=== PATIENT | female | born 1945 | race Caucasian/White ===

== ENCOUNTER → 2017-05-09 | Outpatient (CLI) | payer OTHER ==
[2017-05-09 08:19] LABS: BASOPHILS # (AUTO) 0.1 X10^3/uL (0.0-0.1); BASOPHILS % (AUTO) 1.1 % (0.2-1.0); EOSINOPHILS # (AUTO) 0.2 x10^3/uL (0.0-0.2); EOSINOPHILS % (AUTO) 2.1 % (0.9-2.9); HEMATOCRIT 34.5 % (36.0-47.0); HEMOGLOBIN 11.6 g/dL (12.0-16.0); LYMPHOCYTES % (AUTO) 20.1 % (21.0-51.0); MEAN CORPUSCULAR HEMOGLOBIN 28.2 pg (27.0-34.0); MEAN CORPUSCULAR HGB CONC 33.5 g/dL (33.0-35.0); MEAN CORPUSCULAR VOLUME 84.3 fL (80.0-100.0); MEAN PLATELET VOLUME 8.3 fL (7.4-11.0); MONOCYTES # (AUTO) 0.9 x10^3/uL (0.3-0.8); MONOCYTES % (AUTO) 9.7 % (0.0-13.0); NEUTROPHILS # (AUTO) 6.5 x10^3/uL (2.2-4.8); PLATELET COUNT 306 X10^3/uL (150.0-450.0); RED CELL DISTRIBUTION WIDTH 15.6 % (11.6-16.5); WHITE BLOOD COUNT 9.7 X10^3/uL (3.6-10.0)
[2017-05-09 08:42] LABS: CALCIUM 10.1 mg/dL (8.5-10.1); CARBON DIOXIDE 29.7 mmol/L (21-32); COR CA(FOR HYPOALB) 10.9 mg/dL (8.5-10.1); CREATININE 1.25 mg/dL (0.55-1.02); TOTAL PROTEIN 6.8 g/dL (6.4-8.2)
== END ==
LOC: LAB 07:52
PROVIDERS: ATTEND Internal Medicine Medical Oncology
DX: C50.812 Malignant neoplasm of overlapping sites of left female breast (principal)
CPT/HCPCS: 36415; 80053; 85025

== ENCOUNTER 2018-04-26 08:17 | Observation (INO) ==
[2018-04-26 08:27] VITALS: BMI 26.7
--- NOTE | 2018-04-26 08:46 | DR.NAUSEAF ---
HPI Time Seen Time Seen by Provider: 04/26/18 08:43 Primary Care Physician Primary Care Physician: JESSICA Complaints Chief Complaint:: STARTED N/V YESTERDAY AND LABORED BREATHING FOR A COUPLE OF DAYS. BEEN REALLY WEAK. SPO2 WAS 91-92. HAD CHEMO TX YESTERDAY. PATIENT HAS BEEN HAVING MORE AMS THAN NORMAL. Reviewed Nurses Notes Reviewed: Yes Source History Provided: Patient Mode of Arrival Mode of Arrival: Ambulatory Timing Onset of Chief Complaint: 04/23/18 PMH PMH Past Medical History: Yes Past Medical History: Diabetes, Hypertension and Hypothyroidism Past Medical History Comment: CANCER Past Surgical History: Yes Surgical History: Cholecystectomy, Hysterectomy, Mastectomy and Tonsillectomy Family History History of Family Medical Conditions: Yes Family Medical History: Cancer Social History Does patient currently use any type of tobacco product: No Have you used tobacco products in the last 12 months: No Type of Tobacco Use: None Does any household member use tobacco: No Do you use any recreational Drugs:: No Lives With: Alone and Family Lives Where: Home infectious screening In the last 2 months have you had wt loss of >10#?: NO Have you had fever, night sweats or hemotysis?: No Have you traveled outside the country in the last 6 months?: No PE Vital Signs Vitals: Temperature 97.5 F Pulse Rate [Right Brachial] 81 Pulse Rate 88 Respiratory Rate 18 Blood Pressure [Right Arm] 145/66 Blood Pressure 121/60 O2 Sat by Pulse Oximetry 100 MDM Additional Information Obtained Additional Information Obtained From: Old Records, Family and PCP Differential Diagnosis Differential Diagnosis: Considerations may Include:: Bowel Obstruction, Cholecystitis, Gastritis, Gastroenteritis, Pancreatitis, PUD, Urinary Tract Infection and Urolithiasis Differential Diagnosis Comment: AMS, METASTATIC BREAST CANCER. COURSE Treatment Treatment: SEE ORDERS. ROR Labs Reviewed Result Diagrams: 04/26/18 09:28 04/26/18 09:28 Laboratory: WBC 9.2 X10^3/uL (3.6-10.0) 04/26/18 09:28 RBC 3.64 X10^6/uL (3.5-5.4) 04/26/18 09:28 Hgb 11.8 g/dL (12.0-16.0) L 04/26/18 09:28 Hct 35.4 % (36.0-47.0) L 04/26/18 09:28 MCV 97.0 fL (80.0-100.0) 04/26/18: MCH 32.4 pg (27.0-34.0) 04/26/18 MCHC 33.4 g/dL (33.0-35.0) 04/26/18 RDW 16.9 % (11.6-16.5) H 04/26/18 Plt Count 294 X10^3/uL (150.0-450.0) 04/26/18 MPV 9.2 fL (7.4-11.0) 04/26/18 Neut % (Auto) 76.3 % (42.0-75.0) H 04/26/18 Lymph % (Auto) 16.1 % (21.0-51.0) L 04/26/18 [place] % (Auto) 6.3 % (0.0-13.0) 04/26/18 Eos % (Auto) 0.5 % (0.9-2.9) L 04/26/18 Baso % (Auto) 0.8 % (0.2-1.0) 04/26/18 Neut # (Auto) 7.0 x10^3/uL (2.2-4.8) H 04/26/18 Lymph # (Auto) 1.5 X10^3/uL (1.3-2.9) 04/26/18 [place] # (Auto) 0.6 x10^3/uL (0.3-0.8) 04/26/18 Eos # (Auto) 0.0 x10^3/uL (0.0-0.2) 04/26/18 Baso # (Auto) 0.1 X10^3/uL (0.0-0.1) 04/26/18 Absolute Nucleated RBC 0.0 /100WBC 04/26/18 Sodium 142 mmol/L (136-145) 04/26/18 Corrected Sodium 144 mmol/L (136-145) 04/26/18 Potassium 3.6 mmol/L (3.5-5.1) 04/26/18 09:28 Chloride 103 mmol/L (98-107) 04/26/18 09:28 Carbon Dioxide 30.1 mmol/L (21-32) 04/26/18 09:28 BUN 33 mg/dL (7-18) H 04/26/18 09:28 Creatinine 1.70 mg/dL (0.55-1.02) H 04/26/18 09:28 Est GFR (MDRD) Af Amer 38 (>60) L 04/26/18:28 Est GFR (MDRD) Non-Af 31 (>60) L 04/26/18:28 Glucose 171 mg/dL (65-99) H 04/26/18 09:28 Lactic Acid 1.0 mmol/L (0.4-2.0) 04/26/18 09:28 Calcium 9.6 mg/dL (8.5-10.1) 04/26/18: Corrected Calcium 10.3 mg/dL (8.5-10.1) H 04/26/18 09:28 Total Bilirubin 0.40 mg/dL (0.2-1.0) 04/26/18 09:28 AST 26 Units/L (15-37) 04/26/18 09:28 ALT 38 Units/L (12-78) 04/26/18 09:28 Alkaline Phosphatase 92 Units/L (46-116) 04/26/18 09:28 Creatine Kinase 30 Units/L (26-192) 04/26/18 09:28 CK-MB (CK-2) < 1.0 ng/mL (0-4.0) 04/26/18 09: CK/CKMB % Calc 3.3 % (<4) 04/26/18 09:28 Troponin I 0.02 ng/mL (0-1.5) 04/26/18 09:28 C-Reactive Protein 43.90 mg/L (0-3.0) H 04/26/18 09:28 Total Protein 6.4 g/dL (6.4-8.2) 04/26/18 09:28 Albumin 3.1 g/dL (3.4-5.0) L 04/26/18 09:28 Globulin 3.3 g/dL (2.5-4.5) 04/26/18 09:28 Albumin/Globulin Ratio 0.9 Ratio (1.1-2.1) L 04/26/18 09:28 Amylase 40 Units/L (25-115) 04/26/18 09:28 Lipase 90 Units/L (73-393) 04/26/18 09:28
[2018-04-26 09:38] LABS: BASOPHILS # (AUTO) 0.1 X10^3/uL (0.0-0.1); BASOPHILS % (AUTO) 0.8 % (0.2-1.0); EOSINOPHILS % (AUTO) 0.5 % (0.9-2.9); HEMATOCRIT 35.4 % (36.0-47.0); HEMOGLOBIN 11.8 g/dL (12.0-16.0); LYMPHOCYTES # (AUTO) 1.5 X10^3/uL (1.3-2.9); LYMPHOCYTES % (AUTO) 16.1 % (21.0-51.0); MEAN CORPUSCULAR HEMOGLOBIN 32.4 pg (27.0-34.0); MEAN CORPUSCULAR HGB CONC 33.4 g/dL (33.0-35.0); MEAN PLATELET VOLUME 9.2 fL (7.4-11.0); MONOCYTES # (AUTO) 0.6 x10^3/uL (0.3-0.8); MONOCYTES % (AUTO) 6.3 % (0.0-13.0); NEUTROPHILS % (AUTO) 76.3 % (42.0-75.0); PLATELET COUNT 294 X10^3/uL (150.0-450.0); RED BLOOD COUNT 3.64 X10^6/uL (3.5-5.4); RED CELL DISTRIBUTION WIDTH 16.9 % (11.6-16.5); WHITE BLOOD COUNT 9.2 X10^3/uL (3.6-10.0)
[2018-04-26 09:55] LABS: BLOOD UREA NITROGEN 33 mg/dL (7-18); CALCIUM 9.6 mg/dL (8.5-10.1); CARBON DIOXIDE 30.1 mmol/L (21-32); CHLORIDE 103 mmol/L (98-107); COR NA(FOR HYPERGLY) 144 mmol/L (136-145); SODIUM 142 mmol/L (136-145); TROPONIN I 0.02 ng/mL (0-1.5); eGFR NON BLACK RACES 31 (>60)
[2018-04-26 10:00] LABS: ALANINE AMINOTRANSFERASE 38 Units/L (12-78); ALBUMIN 3.1 g/dL (3.4-5.0); ALKALINE PHOSPHATASE 92 Units/L (46-116); AMYLASE 40 Units/L (25-115); ASPARTATE AMINO TRANSFERASE 26 Units/L (15-37); CKMB % 3.3 % (<4); COR CA(FOR HYPOALB) 10.3 mg/dL (8.5-10.1); CREATINE KINASE 30 Units/L (26-192); CREATINE KINASE MB < 1.0 ng/mL (0-4.0); LIPASE 90 Units/L (73-393); TOTAL PROTEIN 6.4 g/dL (6.4-8.2)
--- NOTE | 2018-04-26 10:26 | CT ---
CT HEAD WITHOUT CONTRAST CLINICAL HISTORY: 72-year-old female with altered mental status and history of breast cancer. COMPARISON: CT head 11/19/2014. TECHNIQUE: Multiple, non-contrasted axial CT images were obtained from the skull base to the cranial vertex. Coronal and sagittal reformats were performed. FINDINGS: There are no abnormal intra- or extra-axial fluid collections, midline shift, or mass effect. Valles-white differentiation is normal. Global cortical involutional changes are present that are advanced for the patient's stated age. The ventricular system is enlarged but commensurate with the degree of sulcal prominence. Periventricular and supraventricular white matter hypodensity is present that is nonspecific in appearance, but most likely to represent microvascular ischemic changes. Atherosclerotic vascular calcification is present within the carotid siphons and distal vertebral arteries. Arrested pneumatization frontal sinuses. The remaining imaged paranasal sinuses, mastoid air cells, and tympanic spaces are clear. IMPRESSION: 1. No definite evidence of an acute intracranial process. If clinical concern persists for acute stroke and it would alter patient management, consider MRI/MRA brain. 2. Moderate microvascular white matter ischemic changes, with associated volume loss. Reported By:
--- NOTE | 2018-04-26 10:44 | RAD ---
HISTORY: Abdomen pain, nausea and vomiting for 2 days. Prior history of diabetes, hypertension and breast cancer. Study: Abdomen series with frontal chest Comparison: 07/21/2017. Findings: Right-sided LifePort is again seen with the tip in the mid SVC. Trachea is midline. Heart size is normal. There is hyperinflation of the lungs with bilateral pleural effusions, pleural effusion on the right side is slightly larger with foci of atelectasis or scarring in the right lung base. No pneumothorax is seen. There is a healed fracture of the left proximal humerus. Moderate stool is present throughout the colon. No bowel obstruction or perforation is seen. There are calcific densities overlying both kidneys, suspicious for kidney stones. A biliary stent is present. There is again evidence of kyphoplasty the T11 level. Surgical clips are present throughout the abdomen. There are large amorphous calcifications present involving both gluteal regions from prior I am injections. No acute osseous abnormalities are seen. IMPRESSION: Small bilateral pleural effusions, slightly larger on the right side with right basilar linear foci of atelectasis or scarring. No pneumothorax is seen. Abundant stool present throughout the colon. No bowel obstruction or perforation is seen. There is no evidence of free intraperitoneal air or fluid. Multiple postsurgical changes are present with a biliary stent present. There are bilateral renal calculi present. The largest kidney stone is seen on the left side measuring about 1.8 cm in length. Reported By:
[2018-04-26] MEDS ORDERED: ZOFRAN INJ 4 MG VIAL IVP ONE (11:04)
[2018-04-26] MEDS ORDERED: ZOFRAN INJ 4 MG VIAL ONE (11:06)
[2018-04-26] MEDS ORDERED: KLONOPIN TAB 1 MG PO PRN (12:35)
[2018-04-26] MEDS ORDERED: NEURONTIN CAP 100 MG PO PRN (12:35)
[2018-04-26] MEDS ORDERED: PROVENTIL NEB TX 0.083% 2.5MG/ 3ML NEB PRN (12:36)
[2018-04-26] MEDS: REGLAN TAB 10 MG PO SCH ×3 (14:04→21:33)
[2018-04-26] MEDS: MICRO K EXTEN CAP 10 MEQ PO SCH ×2 (14:04→21:33)
[2018-04-26] MEDS: MIRAPEX TAB 1 MG PO SCH ×2 (14:04→21:33)
[2018-04-26] MEDS: NS 1000 ML 1,000 ML IV SCH (14:04)
[2018-04-26 15:10] LABS: BILIRUBIN,URINE NEGATIVE (NEGATIVE); BLOOD/HEMOGLOBIN,URINE 1+ (NEGATIVE); GLUCOSE, URINE NEGATIVE (NEGATIVE); KETONES,URINE NEGATIVE (NEGATIVE); LEUKOCYTE ESTERASE ,URINE 2+ (NEGATIVE); NITRITES,URINE NEGATIVE (NEGATIVE); PROTEIN,URINE 1+ (NEGATIVE); UROBILINOGEN,URINE NORMAL (NORMAL)
[2018-04-26 15:21] LABS: APPEARANCE,URINE HAZY (CLEAR); BACTERIA,URINE TRACE /HPF (NEGATIVE); COLOR,URINE DARK YELLOW (YELLOW); RENAL EPITHELIAL CELLS,URINE FEW /HPF (NEGATIVE); SQUAMOUS EPITHELIAL CELL,UR MODERATE /HPF (NEGATIVE)
[2018-04-26] MEDS ORDERED: PREVNAR 13 IM ONE (15:47)
[2018-04-26 16:17] LABS: CKMB % 3.1 % (<4); CREATINE KINASE 32 Units/L (26-192); CREATINE KINASE MB < 1.0 ng/mL (0-4.0); TROPONIN I 0.02 ng/mL (0-1.5)
[2018-04-26] MEDS: PEPCID 20 MG IV PREMIX* 20 MG/50 ML BAG IV SCH (21:33)
[2018-04-26] MEDS: EFFEXOR TAB 75 MG (BID DOSING) PO SCH (21:34)
[2018-04-26 22:25] LABS: CKMB % 1.8 % (<4); TROPONIN I 0.02 ng/mL (0-1.5)
[2018-04-27] MEDS: NS 1000 ML 1,000 ML IV SCH ×2 (04:10→19:00)
[2018-04-27] MEDS: MICRO K EXTEN CAP 10 MEQ PO SCH ×3 (05:41→21:06)
[2018-04-27] MEDS: MIRAPEX TAB 1 MG PO SCH ×3 (05:42→21:06)
[2018-04-27 06:32] LABS: BASOPHILS # (AUTO) 0.1 X10^3/uL (0.0-0.1); BASOPHILS % (AUTO) 1.1 % (0.2-1.0); EOSINOPHILS % (AUTO) 0.3 % (0.9-2.9); HEMOGLOBIN 11.3 g/dL (12.0-16.0); LYMPHOCYTES # (AUTO) 1.7 X10^3/uL (1.3-2.9); LYMPHOCYTES % (AUTO) 22.1 % (21.0-51.0); MEAN CORPUSCULAR HEMOGLOBIN 32.5 pg (27.0-34.0); MEAN CORPUSCULAR HGB CONC 33.1 g/dL (33.0-35.0); MEAN CORPUSCULAR VOLUME 97.9 fL (80.0-100.0); MEAN PLATELET VOLUME 9.7 fL (7.4-11.0); MONOCYTES # (AUTO) 0.6 x10^3/uL (0.3-0.8); MONOCYTES % (AUTO) 8.4 % (0.0-13.0); NEUTROPHILS # (AUTO) 5.2 x10^3/uL (2.2-4.8); NEUTROPHILS % (AUTO) 68.1 % (42.0-75.0); PLATELET COUNT 268 X10^3/uL (150.0-450.0); RED BLOOD COUNT 3.47 X10^6/uL (3.5-5.4); RED CELL DISTRIBUTION WIDTH 16.8 % (11.6-16.5); WHITE BLOOD COUNT 7.7 X10^3/uL (3.6-10.0)
[2018-04-27 06:48] LABS: ALBUMIN 2.8 g/dL (3.4-5.0); CALCIUM 8.5 mg/dL (8.5-10.1); CARBON DIOXIDE 24.3 mmol/L (21-32); COR CA(FOR HYPOALB) 9.5 mg/dL (8.5-10.1); CREATININE 1.61 mg/dL (0.55-1.02); MAGNESIUM 1.6 mg/dL (1.7-2.9); TOTAL PROTEIN 5.9 g/dL (6.4-8.2)
[2018-04-27] MEDS: SYNTHROID 50 mcg TAB PO SCH (09:27)
[2018-04-27] MEDS: EFFEXOR TAB 75 MG (BID DOSING) PO SCH ×2 (09:28→21:06)
[2018-04-27] MEDS: MAG-OX TAB PO SCH (09:28)
[2018-04-27] MEDS: MAXZIDE 37.5/25 MG PO SCH (09:28)
[2018-04-27] MEDS: REGLAN TAB 10 MG PO SCH ×4 (09:28→21:07)
[2018-04-27] MEDS: PEPCID 20 MG IV PREMIX* 20 MG/50 ML BAG IV SCH ×2 (09:29→21:06)
[2018-04-27] MEDS: INDERAL TAB 10 MG PO SCH (09:34)
[2018-04-27] MEDS ORDERED: POTASSIUM CHL 40 MEQ/NS 0.45% 500 ML IV PRN (09:35)
[2018-04-27] MEDS ORDERED: K-DUR TAB 20 MEQ PO PRN (09:35)
[2018-04-27] MEDS ORDERED: POTASSIUM CHLORIDE LIQ 20 MEQ UDC PO PRN (09:35)
[2018-04-27] MEDS ORDERED: KLOR-CON PO PRN (09:35)
[2018-04-27] MEDS ORDERED: K-RIDER 10 MEQ/NS 100 ML 10 MEQ/100 ML BAG IV PRN (09:35)
[2018-04-27] MEDS ORDERED: MICRO K EXTEN CAP 10 MEQ PO PRN (09:35)
[2018-04-27] MEDS ORDERED: POTASSIUM CHL 60 MEQ/NS 0.45% 500 ML IV PRN (09:35)
[2018-04-27] MEDS: PREDNISONE TAB 5 MG PO SCH (09:44)
[2018-04-27] MEDS ORDERED: TYLENOL 325 MG TAB PO ONE (09:55)
[2018-04-27] MEDS ORDERED: TYLENOL 325 MG TAB PO PRN (09:59)
--- NOTE | 2018-04-27 17:41 | RAD ---
PA and lateral chest Indication: Follow-up pleural effusion Comparison: 04/26/2018 Findings: Pleural parenchymal scarring and moderate size right pleural effusion persist. There is likely small effusion and/or scarring within the left lung base as well. Moderate pleural parenchymal scarring within both lung apices. Chronic interstitial lung changes with pleural parenchymal scarring and subsegmental atelectasis within both lung bases. No convincing acute airspace disease or CHF. Heart size is unchanged. Stable positioning of right chest wall MediPort. No acute osseous abnormality. Impression: See above. Reported By:
[2018-04-27] MEDS ORDERED: HumaLOG SC ONE ×2 (17:54→18:01)
[2018-04-27] MEDS: HumaLOG SC PRN ×2 (18:11→21:27)
[2018-04-27] MEDS ORDERED: COMPAZINE PO PRN (19:11)
--- NOTE | 2018-04-27 19:17 | DR.H&P ---
H&P - History & Physical for Day of: H&P Date: 04/26/18 - Chief Complaint Chief Complaint: STARTED N/V YESTERDAY AND LABORED BREATHING FOR A COUPLE OF DAYS. BEEN REALLY WEAK. SPO2 WAS 91-92. HAD CHEMO TX YESTERDAY. PATIENT HAS BEEN HAVING MORE AMS THAN NORMAL PER FAMILY REPORT - History of Present Illness History of Present Illness: 72 WF ER ADMISSION AFTER PRESENTING WITH CO N/V, WEAKNESS AND INCREASED CONFUSION. PT HAD HX OF METASTATIC BREAST CANCER AND HAD CXR WITH MODERATE RIGHT PLEURAL EFFUSION, FAMILY REPORTS DR MENDEZ HAS "DRAINED IT LIKE 2-3 TIMES" RECENTLY. PT HAS ADRENAL INSUFFICENCY AND DM DUE TO CORTISONE THERAPY. PT FAMILY REPORTS SHE JUST HAD CHEMO, DENIES KNOWN FEVER. - Past Medical History Past Medical History: Hypertension, Diabetes, Hypothyroidism Additional Medical History: BREAST CANCER. ADRENAL GLAND FAILURE - Past Surgical History Surgical History: Cholecystectomy, Hysterectomy, Mastectomy, Tonsillectomy - Family History Family Medical History: Cancer - Social History Does patient currently use any type of tobacco product: No Have you used tobacco products in the last 12 months: No Type of Tobacco Use: None Does any household member use tobacco: No Alcohol Use: None Drug Use: None - Medications Home Medications: codeine Allergy (Verified 07/17/17 15:43) levofloxacin [From Levaquin] Allergy (Verified 07/20/17 17:42) Sulfa (Sulfonamide Antibiotics) [SULFA] Allergy (Verified 07/17/17 15:43) CONTINUE taking the following medications cetirizine 2 tab PO HS 04/26/18 [History] insulin glargine U-300 conc [[employer] SoloStar U-300 Insulin] 16 units SUBCUT DAILY 04/26/18 [History] ondansetron 0.5 - 1 tab TRANSLINGUAL PRN PRN 04/26/18 [History] potassium chloride 10 meq PO TID 04/26/18 [History] pramipexole 1 mg PO TID 04/26/18 [History] prochlorperazine maleate 10 mg PO Q8H PRN 04/26/18 [History] propranolol 60 mg PO DAILY 04/26/18 [History] ropinirole 1 mg PO TID 04/26/18 [History] - Review of Systems Constitutional: Weakness Eyes: No Symptoms Reported ENT: No Symptoms Reported Respiratory: Shortness of Breath Cardiovascular: Edema Gastrointestinal: Nausea, Vomiting Genitourinary: No Symptoms Reported Musculoskeletal: No Symptoms Reported Skin: No Symptoms Reported Neurological: Weakness, Confusion - Physical Exam Vital Signs: Temperature 98.1 F Pulse Rate [Right Brachial] 71 Pulse Rate 88 Respiratory Rate 18 Blood Pressure [Right Arm] 145/65 Blood Pressure 121/60 O2 Sat by Pulse Oximetry 98 Oriented: Person Eyes: Normal Ear: Normal Nose: Normal Throat: Normal Respiratory: RML Diminished, RLL Diminished, LML Diminished, LLL Diminished Cardiovascular: Edema. negative: Tachycardia : Normal Auscultation: Bowel Sounds: Normal Palpation: Normal Tenderness: Normal Skin: Decreased Turgur Musculoskeletal: Normal Mood Description: Calm Speech Pattern: Clear, Appropriate - Assessment/Plan (1) Hypokalemia Status: Acute Plan: POTASSIUM REPLACEMENT. BP AND BLOOD SUGAR CONTROL. VERIFY HOME MEDICATION. N/V CONTROL, REPEAT AM CXR, SUPPLEMENTAL O2. CONSULT DR MENDEZ (2) Bilateral pleural effusion Status: Acute (3) N&V (nausea and vomiting) Status: Acute (4) Breast cancer Status: Acute (5) Adrenal failure Status: Acute (6) Generalized weakness Status: Acute - Allergies Allergies/Adverse Reactions: Allergies Allergy/AdvReac Type Severity Reaction Status Date / Time codeine Allergy Verified 07/17/17 15:43 levofloxacin [From Levaquin] Allergy Verified 07/20/17 17:42 Sulfa (Sulfonamide Allergy Verified 07/17/17 15:43 Antibiotics) [SULFA]
[2018-04-27] MEDS ORDERED: SNACK - Diabetic Appropriate PO SCH (20:00)
[2018-04-27] MEDS ORDERED: ZyrTEC TAB 10 MG PO SCH (21:00)
[2018-04-27] MEDS: REQUIP PO SCH (21:06)
[2018-04-27] MEDS: ROCEPHIN VIAL 1 GRAM IVP SCH (21:36)
[2018-04-28] MEDS: NS 1000 ML 1,000 ML IV SCH (03:49)
[2018-04-28 05:18] LABS: BASOPHILS % (AUTO) 0.8 % (0.2-1.0); EOSINOPHILS % (AUTO) 0.7 % (0.9-2.9); HEMATOCRIT 35.1 % (36.0-47.0); HEMOGLOBIN 11.5 g/dL (12.0-16.0); LYMPHOCYTES # (AUTO) 1.1 X10^3/uL (1.3-2.9); LYMPHOCYTES % (AUTO) 17.5 % (21.0-51.0); MEAN CORPUSCULAR HEMOGLOBIN 32.1 pg (27.0-34.0); MEAN CORPUSCULAR HGB CONC 32.8 g/dL (33.0-35.0); MEAN CORPUSCULAR VOLUME 97.9 fL (80.0-100.0); MEAN PLATELET VOLUME 9.8 fL (7.4-11.0); MONOCYTES # (AUTO) 0.4 x10^3/uL (0.3-0.8); MONOCYTES % (AUTO) 6.5 % (0.0-13.0); NEUTROPHILS # (AUTO) 4.5 x10^3/uL (2.2-4.8); NEUTROPHILS % (AUTO) 74.5 % (42.0-75.0); PLATELET COUNT 286 X10^3/uL (150.0-450.0); RED BLOOD COUNT 3.59 X10^6/uL (3.5-5.4); RED CELL DISTRIBUTION WIDTH 16.2 % (11.6-16.5); WHITE BLOOD COUNT 6.1 X10^3/uL (3.6-10.0)
[2018-04-28 05:27] LABS: ALBUMIN 2.7 g/dL (3.4-5.0); CALCIUM 8.2 mg/dL (8.5-10.1); CARBON DIOXIDE 25.6 mmol/L (21-32); COR CA(FOR HYPOALB) 9.2 mg/dL (8.5-10.1); CREATININE 1.39 mg/dL (0.55-1.02); MAGNESIUM 1.9 mg/dL (1.7-2.9)
[2018-04-28] MEDS: MIRAPEX TAB 1 MG PO SCH (05:39)
[2018-04-28] MEDS: REQUIP PO SCH (05:39)
[2018-04-28] MEDS: MICRO K EXTEN CAP 10 MEQ PO SCH (05:39)
[2018-04-28] MEDS: HumaLOG SC PRN ×2 (05:53→11:29)
[2018-04-28] MEDS: ROCEPHIN VIAL 1 GRAM IVP SCH (08:20)
[2018-04-28] MEDS: PEPCID 20 MG IV PREMIX* 20 MG/50 ML BAG IV SCH (08:20)
[2018-04-28] MEDS: MAXZIDE 37.5/25 MG PO SCH (08:21)
[2018-04-28] MEDS: EFFEXOR TAB 75 MG (BID DOSING) PO SCH (08:22)
[2018-04-28] MEDS: REGLAN TAB 10 MG PO SCH ×2 (08:22→13:58)
[2018-04-28] MEDS: SYNTHROID 50 mcg TAB PO SCH (08:22)
[2018-04-28] MEDS: MAG-OX TAB PO SCH (08:22)
[2018-04-28] MEDS: INDERAL TAB 10 MG PO SCH (08:22)
[2018-04-28] MEDS: PREDNISONE TAB 5 MG PO SCH (08:22)
--- NOTE | 2018-04-28 13:10 | PCM.PROG ---
Progress Note - Progress Note for Day of Date of Exam: 04/27/18 - Subjective Subjective: 72 WF ADMITTED ON 04/26 WITH WEAKNESS, N/V, UTI, CONFUSION PER FAMILY AND PLEURAL EFFUSION SEEN ON XRAY. PT HAD HX OF BREAST CANCER AND HAS HAD REOCCURRING PLEURAL EFFUSION WITH THORACETSIS PER DR MENDEZ. PT HAD UTI ON ADMISSION AND CURRENTLY ON IV ROCEPHIN WITH CULTURE PENDING. 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 PT HAD REPEAT CXR AND CONSULTED DR GORDON. - Past Medical Family Social History Past Med/Fam/Surg Hx: No changes since H&P Allergies: Allergies codeine Allergy (Verified 07/17/17 15:43) levofloxacin [From Levaquin] Allergy (Verified 07/20/17 17:42) Sulfa (Sulfonamide Antibiotics) [SULFA] Allergy (Verified 07/17/17 15:43) - Review of Systems ROS: No change since H&P - Vital Signs and I&O's Vital Signs: Temperature 98.2 F Pulse Rate [Right Brachial] 84 Pulse Rate 88 Respiratory Rate 18 Blood Pressure [Right Arm] 154/69 Blood Pressure 121/60 O2 Sat by Pulse Oximetry 97 Intake and Output: Intake & Output 04/26/18 04/27/18 04/28/18 04/29/18 11:59 11:59 11:59 11:59 Intake Total 660 / 660 1765 / 1765 Balance 660 / 660 1765 / 1765 - Physical Exam Oriented: Person Eyes: Normal Ear: Normal Nose: Normal Throat: Normal Respiratory: Diminished Cardiovascular: Edema. negative: Tachycardia : Normal Auscultation: Bowel Sounds: Normal Tenderness: Normal Skin: Decreased Turgur Musculoskeletal: Normal Mood Description: Calm Speech Pattern: Clear, Appropriate - Laboratory and Diagnostics Result Diagrams: 04/28/18 04:27 04/28/18 04:27 Labs: 04/26/18 09:22 Blood Blood Culture - Preliminary 04/26/18 09:28 Blood Blood Culture - Preliminary 04/26/18 14:50 Urine,Clean Catch Urine Culture - Final Enterococcus Faecalis Laboratory WBC 6.1 X10^3/uL (3.6-10.0) 04/28/18 04:27 RBC 3.59 X10^6/uL (3.5-5.4) 04/28/18 04:27 Hgb 11.5 g/dL (12.0-16.0) L 04/28/18 04:27 Hct 35.1 % (36.0-47.0) L 04/28/18 04:27 MCV 97.9 fL (80.0-100.0) 04/28/18 04:27 MCH 32.1 pg (27.0-34.0) 04/28/18 04:27 MCHC 32.8 g/dL (33.0-35.0) L 04/28/18 04:27 RDW 16.2 % (11.6-16.5) 04/28/18 04:27 Plt Count 286 X10^3/uL (150.0-450.0) 04/28/18 04:27 MPV 9.8 fL (7.4-11.0) 04/28/18 04:27 Neut % (Auto) 74.5 % (42.0-75.0) 04/28/18 04:27 Lymph % (Auto) 17.5 % (21.0-51.0) L 04/28/18 04:27 [place] % (Auto) 6.5 % (0.0-13.0) 04/28/18 04:27 Eos % (Auto) 0.7 % (0.9-2.9) L 04/28/18 04:27 Baso % (Auto) 0.8 % (0.2-1.0) 04/28/18 04:27 Neut # (Auto) 4.5 x10^3/uL (2.2-4.8) 04/28/18 04:27 Lymph # (Auto) 1.1 X10^3/uL (1.3-2.9) L 04/28/18 04:27 [place] # (Auto) 0.4 x10^3/uL (0.3-0.8) 04/28/18 04:27 Eos # (Auto) 0.0 x10^3/uL (0.0-0.2) 04/28/18 04:27 Baso # (Auto) 0.0 X10^3/uL (0.0-0.1) 04/28/18 04:27 Absolute Nucleated RBC 0.1 /100WBC 04/28/18 04:27 Sodium 141 mmol/L (136-145) 04/28/18 04:27 Corrected Sodium 144 mmol/L (136-145) 04/28/18 04:27 Potassium 3.8 mmol/L (3.5-5.1) 04/28/18 04:27 Chloride 108 mmol/L (98-107) H 04/28/18 04:27 Carbon Dioxide 25.6 mmol/L (21-32) 04/28/18 04:27 BUN 22 mg/dL (7-18) H 04/28/18 04:27 Creatinine 1.39 mg/dL (0.55-1.02) H 04/28/18 04:27 Est GFR (MDRD) Af Amer 48 (>60) L 04/28/18 04:27 Est GFR (MDRD) Non-Af 40 (>60) L 04/28/18 04:27 Glucose 210 mg/dL (65-99) H 04/28/18 04:27 POC Glucose (mg/dL) 263 mg/dL (65-99) H 04/28/18 11:22 Lactic Acid 1.0 mmol/L (0.4-2.0) 04/26/18 09:28 Calcium 8.2 mg/dL (8.5-10.1) L 04/28/18 04:27 Corrected Calcium 9.2 mg/dL (8.5-10.1) 04/28/18 04:27 Magnesium 1.9 mg/dL (1.7-2.9) 04/28/18 04:27 Total Bilirubin 0.30 mg/dL (0.2-1.0) 04/28/18 04:27 AST 34 Units/L (15-37) 04/28/18 04:27 ALT 40 Units/L (12-78) 04/28/18 04:27 Alkaline Phosphatase 84 Units/L (46-116) 04/28/18 04:27 Creatine Kinase 57 Units/L (26-192) 04/26/18 21:37 CK-MB (CK-2) 1.0 ng/mL (0-4.0) 04/26/18 21:37 CK/CKMB % Calc 1.8 % (<4) 04/26/18 21:37 Troponin I 0.02 ng/mL (0-1.5) 04/26/18 21:37 C-Reactive Protein 43.90 mg/L (0-3.0) H 04/26/18 09:28 Total Protein 6.0 g/dL (6.4-8.2) L 04/28/18 04:27 Albumin 2.7 g/dL (3.4-5.0) L 04/28/18 04:27 Globulin 3.3 g/dL (2.5-4.5) 04/28/18 04:27 Albumin/Globulin Ratio 0.8 Ratio (1.1-2.1) L 04/28/18 04:27 Amylase 40 Units/L (25-115) 04/26/18 09:28 Lipase 90 Units/L (73-393) 04/26/18 09:28 Specimen Type Clean catch urine 04/26/18 14:50 Urine Color Dark yellow (YELLOW) 04/26/18 14:50 Urine Appearance Hazy (CLEAR) 04/26/18 14:50 Urine pH 5.0 (5.0 - 8.0) 04/26/18 14:50 Ur Specific [place] 1.020 (1.000-1.030) 04/26/18 14:50 Urine Protein 1+ (NEGATIVE) 04/26/18 14:50 Urine Glucose (UA) Negative (NEGATIVE) 04/26/18 14:50 Urine Ketones Negative (NEGATIVE) 04/26/18 14:50 Urine Occult Blood 1+ (NEGATIVE) 04/26/18 14:50 Urine Nitrite Negative (NEGATIVE) 04/26/18 14:50 Urine Bilirubin Negative (NEGATIVE) 04/26/18 14:50 Urine Urobilinogen Normal (NORMAL) 04/26/18 14:50 Ur Leukocyte Esterase 2+ (NEGATIVE) 04/26/18 14:50 Urine RBC 3-5 /HPF (NONE SEEN) 04/26/18 14:50 Urine WBC 10-20 /HPF (NONE SEEN) 04/26/18 14:50 Ur Squamous Epith Cells Moderate /HPF (NEGATIVE) 04/26/18 14:50 Ur Renal Epithelial Cell Few /HPF (NEGATIVE) 04/26/18 14:50 Urine Bacteria Trace /HPF (NEGATIVE) 04/26/18 14:50 Ur Culture Indicated? Yes/culture set up 04/26/18 14:50 - Plan (1) Hypokalemia Status: Acute Plan: POTASSIUM REPLACEMENT. BP AND BLOOD SUGAR CONTROL. VERIFY HOME MEDICATION. N/V CONTROL, REPEAT AM CXR, SUPPLEMENTAL O2. CONSULT DR MENDEZ (2) Bilateral pleural effusion Status: Acute (3) N&V (nausea and vomiting) Status: Acute (4) Breast cancer Status: Acute (5) Adrenal failure Status: Acute (6) Generalized weakness Status: Acute (7) UTI (urinary tract infection) Status: Acute Plan: IV ROCEPHIN
--- NOTE | 2018-04-28 13:16 | PCM.DCPLAN ---
Discharge Summary - Admission Date Date of Admission: 04/26/18 - Discharge Date Discharge Date: 04/28/18 - Admission Diagnoses (1) Hypokalemia Status: Acute (2) Bilateral pleural effusion Status: Acute (3) N&V (nausea and vomiting) Status: Acute (4) Breast cancer Status: Acute (5) Adrenal failure Status: Acute (6) Generalized weakness Status: Acute (7) UTI (urinary tract infection) Status: Acute - Discharge Diagnoses Discharge Diagnosis: SAME ADMISSION, CORRECTION OF HYPOKALEMIA - Discharge Medications Discharge Medications: Home Medication List cetirizine 2 tab PO HS 04/26/18 [History] insulin glargine U-300 conc 16 units SUBCUT DAILY 04/26/18 [History] ondansetron 0.5 - 1 tab TRANSLINGUAL PRN PRN 04/26/18 [History] potassium chloride 10 meq PO TID 04/26/18 [History] pramipexole 1 mg PO TID 04/26/18 [History] prochlorperazine maleate 10 mg PO Q8H PRN 04/26/18 [History] propranolol 60 mg PO DAILY 04/26/18 [History] ropinirole 1 mg PO TID 04/26/18 [History] amoxicillin 500 mg PO BID #20 tab 04/28/18 [Rx] Prescriptions: JOSE ANTONIO Coleman - Hospital Course Vital Signs: Temperature 98.2 F Pulse Rate [Right Brachial] 84 Pulse Rate 88 Respiratory Rate 18 Blood Pressure [Right Arm] 154/69 Blood Pressure 121/60 O2 Sat by Pulse Oximetry 97 Latest Lab Results: Laboratory Last Values WBC 6.1 X10^3/uL (3.6-10.0) 04/28/18 04:27 RBC 3.59 X10^6/uL (3.5-5.4) 04/28/18 04:27 Hgb 11.5 g/dL (12.0-16.0) L 04/28/18 04:27 Hct 35.1 % (36.0-47.0) L 04/28/18 04:27 MCV 97.9 fL (80.0-100.0) 04/28/18 04:27 MCH 32.1 pg (27.0-34.0) 04/28/18 04:27 MCHC 32.8 g/dL (33.0-35.0) L 04/28/18 04:27 RDW 16.2 % (11.6-16.5) 04/28/18 04:27 Plt Count 286 X10^3/uL (150.0-450.0) 04/28/18 04:27 MPV 9.8 fL (7.4-11.0) 04/28/18 04:27 Neut % (Auto) 74.5 % (42.0-75.0) 04/28/18 04:27 Lymph % (Auto) 17.5 % (21.0-51.0) L 04/28/18 04:27 [place] % (Auto) 6.5 % (0.0-13.0) 04/28/18 04:27 Eos % (Auto) 0.7 % (0.9-2.9) L 04/28/18 04:27 Baso % (Auto) 0.8 % (0.2-1.0) 04/28/18 04:27 Neut # (Auto) 4.5 x10^3/uL (2.2-4.8) 04/28/18 04:27 Lymph # (Auto) 1.1 X10^3/uL (1.3-2.9) L 04/28/18 04:27 [place] # (Auto) 0.4 x10^3/uL (0.3-0.8) 04/28/18 04:27 Eos # (Auto) 0.0 x10^3/uL (0.0-0.2) 04/28/18 04:27 Baso # (Auto) 0.0 X10^3/uL (0.0-0.1) 04/28/18 04:27 Absolute Nucleated RBC 0.1 /100WBC 04/28/18 04:27 Sodium 141 mmol/L (136-145) 04/28/18 04:27 Corrected Sodium 144 mmol/L (136-145) 04/28/18 04:27 Potassium 3.8 mmol/L (3.5-5.1) 04/28/18 04:27 Chloride 108 mmol/L (98-107) H 04/28/18 04:27 Carbon Dioxide 25.6 mmol/L (21-32) 04/28/18 04:27 BUN 22 mg/dL (7-18) H 04/28/18 04:27 Creatinine 1.39 mg/dL (0.55-1.02) H 04/28/18 04:27 Est GFR (MDRD) Af Amer 48 (>60) L 04/28/18 04:27 Est GFR (MDRD) Non-Af 40 (>60) L 04/28/18 04:27 Glucose 210 mg/dL (65-99) H 04/28/18 04:27 POC Glucose (mg/dL) 263 mg/dL (65-99) H 04/28/18 11:22 Lactic Acid 1.0 mmol/L (0.4-2.0) 04/26/18 09:28 Calcium 8.2 mg/dL (8.5-10.1) L 04/28/18 04:27 Corrected Calcium 9.2 mg/dL (8.5-10.1) 04/28/18 04:27 Magnesium 1.9 mg/dL (1.7-2.9) 04/28/18 04:27 Total Bilirubin 0.30 mg/dL (0.2-1.0) 04/28/18 04:27 AST 34 Units/L (15-37) 04/28/18 04:27 ALT 40 Units/L (12-78) 04/28/18 04:27 Alkaline Phosphatase 84 Units/L (46-116) 04/28/18 04:27 Creatine Kinase 57 Units/L (26-192) 04/26/18 21:37 CK-MB (CK-2) 1.0 ng/mL (0-4.0) 04/26/18 21:37 CK/CKMB % Calc 1.8 % (<4) 04/26/18 21:37 Troponin I 0.02 ng/mL (0-1.5) 04/26/18 21:37 C-Reactive Protein 43.90 mg/L (0-3.0) H 04/26/18 09:28 Total Protein 6.0 g/dL (6.4-8.2) L 04/28/18 04:27 Albumin 2.7 g/dL (3.4-5.0) L 04/28/18 04:27 Globulin 3.3 g/dL (2.5-4.5) 04/28/18 04:27 Albumin/Globulin Ratio 0.8 Ratio (1.1-2.1) L 04/28/18 04:27 Amylase 40 Units/L (25-115) 04/26/18 09:28 Lipase 90 Units/L (73-393) 04/26/18 09:28 Specimen Type Clean catch urine 04/26/18 14:50 Urine Color Dark yellow (YELLOW) 04/26/18 14:50 Urine Appearance Hazy (CLEAR) 04/26/18 14:50 Urine pH 5.0 (5.0 - 8.0) 04/26/18 14:50 Ur Specific [place] 1.020 (1.000-1.030) 04/26/18 14:50 Urine Protein 1+ (NEGATIVE) 04/26/18 14:50 Urine Glucose (UA) Negative (NEGATIVE) 04/26/18 14:50 Urine Ketones Negative (NEGATIVE) 04/26/18 14:50 Urine Occult Blood 1+ (NEGATIVE) 04/26/18 14:50 Urine Nitrite Negative (NEGATIVE) 04/26/18 14:50 Urine Bilirubin Negative (NEGATIVE) 04/26/18 14:50 Urine Urobilinogen Normal (NORMAL) 04/26/18 14:50 Ur Leukocyte Esterase 2+ (NEGATIVE) 04/26/18 14:50 Urine RBC 3-5 /HPF (NONE SEEN) 04/26/18 14:50 Urine WBC 10-20 /HPF (NONE SEEN) 04/26/18 14:50 Ur Squamous Epith Cells Moderate /HPF (NEGATIVE) 04/26/18 14:50 Ur Renal Epithelial Cell Few /HPF (NEGATIVE) 04/26/18 14:50 Urine Bacteria Trace /HPF (NEGATIVE) 04/26/18 14:50 Ur Culture Indicated? Yes/culture set up 04/26/18 14:50 Hospital Course: [address] [facility] PRESENTING WITH CO N/V, WEAKNESS AND INCREASED CONFUSION. PT HAD HX OF METASTATIC BREAST CANCER AND HAD CXR WITH MODERATE RIGHT PLEURAL EFFUSION, FAMILY REPORTS DR MENDEZ HAS "DRAINED IT LIKE 2-3 TIMES" RECENTLY. PT HAS ADRENAL INSUFFICENCY AND DM DUE TO CORTISONE THERAPY. PT FAMILY REPORTS SHE JUST HAD CHEMO, DENIES KNOWN FEVER. PT WAS HYPOKALEMIC ON ADMISSION WITH UTI, PT WAS STARTED ON ROCEPHIN IV AND GENTLE IV HYDRATION AND POTASSIUM REPLACEMENT. PT WAS CONSULTED BY DR ALEJANDRE, NO THORACENTESIS REQUIRED AT THIS TIME. PT STATES SHE FEELS MUCH BETTER, "NOT SURE WHAT HAPPENED" BUT FEELS FINE NOW. PT URINE CULTURE SENSATIVE TO PO PCN. PT WAS D/C HOME ON AMOXIL AND INSTRUCTED TO STAY INDOORS, HYDRATION, REST F/U DR RUSSELL ON TUESDAY OR RETURN TO ER IF CONDITION RETURNS OR WORSENS. - Discharge Plan Disposition: HOME, SELF-CARE Condition: Stable Prescriptions: amoxicillin 500 mg PO BID #[id number] tab - Follow ups/Referrals Follow ups/Referrals: Diego Russell [Primary Care Provider] - 05/04/18 1:50 pm - Instructions Instructions: Type 2 Diabetes Mellitus, Diagnosis, Adult, Shortness of Breath, Adult, [id number], Cough, Adult, [id number], Fatigue, Weakness, [id number], Nausea and Vomiting, Adult, Xlyl-be-Vbms, Hypertension, Jtni-mn-[id number], Pleural Effusion, Managing Your Hypertension Forms: Patient Portal
[2018-04-28 14:00] VITALS: BP 121/57
== END 2018-04-28 12:30 | disposition home or self-care (01) ==
LOC: MED/SURG 08:23 → ER 08:23 → MED/SURG 12:16
PROVIDERS: ADMIT Internal Medicine; ATTEND Internal Medicine
DX: R94.31 Abnormal electrocardiogram [ECG] [EKG]; C50.919 Malignant neoplasm of unspecified site of unspecified female breast; Z23 Encounter for immunization; N20.0 Calculus of kidney; E11.65 Type 2 diabetes mellitus with hyperglycemia; C79.9 Secondary malignant neoplasm of unspecified site; R26.89 Other abnormalities of gait and mobility; R41.82 Altered mental status, unspecified; N39.0 Urinary tract infection, site not specified; B95.2 Enterococcus as the cause of diseases classified elsewhere; R06.02 Shortness of breath; E03.8 Other specified hypothyroidism; J90 Pleural effusion, not elsewhere classified; I10 Essential (primary) hypertension; E27.49 Other adrenocortical insufficiency; R53.1 Weakness; E87.6 Hypokalemia; Z92.21 Personal history of antineoplastic chemotherapy; R11.2 Nausea with vomiting, unspecified; R94.4 Abnormal results of kidney function studies
CPT/HCPCS: 36415; 70450; 71020; 71046; 74022; 80053; 81001; 82150; 82550; 82553; 83605; 83690; 83735; 84132; 84484; 85025; 86140; 87040; 87086; 87088; 87186; 93005; 94760; 96365; 96367; 96372; 96374; 97161; 97166; 97530; 99282; 99284; A4222; S0028; 90670; G0378; J0696; J1642; J1817; J2405; J3490; J7030; J7512

== ENCOUNTER 2018-11-20 15:45 | Inpatient (IN) ==
[2018-11-21] MEDS: DUONEB 0.5 MG/3 MG NEB SCH ×5 (09:07→20:32)
[2018-11-21 09:56] VITALS: BMI 26.6
[2018-11-21] MEDS ORDERED: ZOFRAN INJ 4 MG VIAL IVP PRN (10:00)
[2018-11-21] MEDS ORDERED: PHENERGAN INJ 25 MG IM PRN (10:01)
[2018-11-21] MEDS: NS 1000 ML 1,000 ML IV SCH ×2 (10:30→23:00)
[2018-11-21 10:35] LABS: BASOPHILS # (AUTO) 0.1 X10^3/uL (0.0-0.1); BASOPHILS % (AUTO) 0.7 % (0.2-1.0); EOSINOPHILS # (AUTO) 0.1 x10^3/uL (0.0-0.2); EOSINOPHILS % (AUTO) 0.5 % (0.9-2.9); HEMATOCRIT 34.5 % (36.0-47.0); HEMOGLOBIN 11.2 g/dL (12.0-16.0); LYMPHOCYTES # (AUTO) 2.2 X10^3/uL (1.3-2.9); LYMPHOCYTES % (AUTO) 15.2 % (21.0-51.0); MEAN CORPUSCULAR HEMOGLOBIN 29.4 pg (27.0-34.0); MEAN CORPUSCULAR HGB CONC 32.4 g/dL (33.0-35.0); MEAN CORPUSCULAR VOLUME 90.9 fL (80.0-100.0); MEAN PLATELET VOLUME 9.9 fL (7.4-11.0); MONOCYTES # (AUTO) 0.7 x10^3/uL (0.3-0.8); MONOCYTES % (AUTO) 4.6 % (0.0-13.0); NEUTROPHILS # (AUTO) 11.3 x10^3/uL (2.2-4.8); PLATELET COUNT 339 X10^3/uL (150.0-450.0); RED CELL DISTRIBUTION WIDTH 16.9 % (11.6-16.5); WHITE BLOOD COUNT 14.3 X10^3/uL (3.6-10.0)
[2018-11-21 10:38] LABS: ALBUMIN 3.2 g/dL (3.4-5.0); CALCIUM 8.8 mg/dL (8.5-10.1); CARBON DIOXIDE 26.3 mmol/L (21-32); COR CA(FOR HYPOALB) 9.4 mg/dL (8.5-10.1); CREATININE 1.76 mg/dL (0.55-1.02); TOTAL PROTEIN 6.7 g/dL (6.4-8.2)
[2018-11-21] MEDS: SNACK - Diabetic Appropriate PO SCH ×2 (11:19→20:40)
[2018-11-21] MEDS: ZOSYN VIAL 3.375 GRAMS 3.375 G in NS 100 ML IV + SPIKE MINIBAG* 100 ML IV SCH ×3 (11:48→21:00)
--- NOTE | 2018-11-21 13:46 | CT ---
HISTORY: Follow-up pleural effusion Study: CT chest without contrast Comparison: None Technique: Multiple axial images of the chest were obtained from the thoracic inlet to the upper abdomen after the administration of IV contrast. Automated dose control was utilized. Findings: The thyroid gland is unremarkable. There is moderate calcified plaque throughout the aorta which is minimally dilated throughout with no aneurysm. The pulmonary arteries are grossly unremarkable. There are mild coronary artery calcifications with no mediastinal mass or adenopathy. The adrenals are normal. There small bibasilar pleural effusions with associated bibasilar atelectasis or infiltrates which is more prominent on the right . There is mild loculated fluid along the right lung base laterally and anteriorly . There is a right Port-A-Cath in place with the tip in the distal superior vena cava . There are bilateral breast prosthesis in place which are intact and in good position. No axillary mass or adenopathy is seen. . There is mild pleural thickening or scarring in both apices. No pulmonary nodule or mass is seen . There is no endobronchial lesion . There is subsegmental opacity along the right middle lobe anteriorly . There are numerous sclerotic lesions throughout the visualized thoracolumbar spine with the largest involving mildly compressed vertebral bodies involved of the T7, T8, T9 and L1 vertebra . There is no displaced or retropulsed fragments. There are small sclerotic lesions along the sternum. IMPRESSION: Small bibasilar pleural effusions on the right greater the left with mild loculated fluid seen along the right lung base anterior laterally. There is mild subsegmental atelectasis vs infiltrates or scarring along the lung bases posteriorly and extending into the right middle lobe , recommend short-term follow-up. No pulmonary nodule or mass identified and no mediastinal adenopathy. Extensive osseous metastatic disease with no numerous pathologic fractures involving the thoracic and lumbar vertebra with no retropulsed fragment, suggest bone scan correlation. Reported By:
--- NOTE | 2018-11-21 23:27 | DR.PROGNOT ---
Hospital Progress Notes - Progress Note for Day of: Progress Note Date: 11/21/18 - Chief Complaint Chief Complaint: Pt is admitted with SBO with metastatic ca and pleural efusion . had previous thoracenthesis for that .seems to be comfortable now and resting with fair oxygenation . CT showed loculated pleural effusion on the Rt . no clear lung mets . - Past Medical Family Social History Past Med/Fam/Surg Hx: No changes since H&P Allergies: Allergies codeine Allergy (Verified 07/17/17 15:43) levofloxacin [From Levaquin] Allergy (Verified 07/20/17 17:42) Sulfa (Sulfonamide Antibiotics) [SULFA] Allergy (Verified 07/17/17 15:43) - Review Of Systems ROS: No change since H&P - Vital Signs Vital Signs: Temperature 98.2 F Pulse Rate 67 Respiratory Rate 25 Blood Pressure [Right Arm] 119/58 Blood Pressure 139/64 O2 Sat by Pulse Oximetry 99 - Physical Exam Respiratory: Right (reduced BS on Rt) Speech Pattern: Clear, Appropriate - Laboratory and Diagnostics Result Diagrams: 11/21/18 09:10 11/21/18 09:10 Labs: Laboratory WBC 14.3 X10^3/uL (3.6-10.0) H 11/21/18 09:10 RBC 3.80 X10^6/uL (3.5-5.4) 11/21/18 09:10 Hgb 11.2 g/dL (12.0-16.0) L 11/21/18 09:10 Hct 34.5 % (36.0-47.0) L 11/21/18 09:10 MCV 90.9 fL (80.0-100.0) 11/21/18 09:10 MCH 29.4 pg (27.0-34.0) 11/21/18 09:10 MCHC 32.4 g/dL (33.0-35.0) L 11/21/18 09:10 RDW 16.9 % (11.6-16.5) H 11/21/18 09:10 Plt Count 339 X10^3/uL (150.0-450.0) 11/21/18 09:10 MPV 9.9 fL (7.4-11.0) 11/21/18 09:10 Neut % (Auto) 79.0 % (42.0-75.0) H 11/21/18 09:10 Lymph % (Auto) 15.2 % (21.0-51.0) L 11/21/18 09:10 [place] % (Auto) 4.6 % (0.0-13.0) 11/21/18 09:10 Eos % (Auto) 0.5 % (0.9-2.9) L 11/21/18 09:10 Baso % (Auto) 0.7 % (0.2-1.0) 11/21/18 09:10 Neut # (Auto) 11.3 x10^3/uL (2.2-4.8) H 11/21/18 09:10 Lymph # (Auto) 2.2 X10^3/uL (1.3-2.9) 11/21/18 09:10 [place] # (Auto) 0.7 x10^3/uL (0.3-0.8) 11/21/18 09:10 Eos # (Auto) 0.1 x10^3/uL (0.0-0.2) 11/21/18 09:10 Baso # (Auto) 0.1 X10^3/uL (0.0-0.1) 11/21/18 09:10 Absolute Nucleated RBC 0.0 /100WBC 11/21/18 09:10 Sodium 142 mmol/L (136-145) 11/21/18 09:10 Corrected Sodium 143 mmol/L (136-145) 11/21/18 09:10 Potassium 3.6 mmol/L (3.5-5.1) 11/21/18 09:10 Chloride 103 mmol/L (98-107) 11/21/18 09:10 Carbon Dioxide 26.3 mmol/L (21-32) 11/21/18 09:10 BUN 23 mg/dL (7-18) H 11/21/18 09:10 Creatinine 1.76 mg/dL (0.55-1.02) H 11/21/18 09:10 Est GFR (MDRD) Af Amer 37 (>60) L 11/21/18 09:10 Est GFR (MDRD) Non-Af 30 (>60) L 11/21/18 09:10 Glucose 157 mg/dL (65-99) H 11/21/18 09:10 POC Glucose (mg/dL) 111 mg/dL (65-99) H 11/21/18 20:14 Calcium 8.8 mg/dL (8.5-10.1) 11/21/18 09:10 Corrected Calcium 9.4 mg/dL (8.5-10.1) 11/21/18 09:10 Total Bilirubin 0.20 mg/dL (0.2-1.0) 11/21/18 09:10 AST 21 Units/L (15-37) 11/21/18 09:10 ALT 28 Units/L (12-78) 11/21/18 09:10 Alkaline Phosphatase 63 Units/L (46-116) 11/21/18 09:10 Total Protein 6.7 g/dL (6.4-8.2) 11/21/18 09:10 Albumin 3.2 g/dL (3.4-5.0) L 11/21/18 09:10 Globulin 3.5 g/dL (2.5-4.5) 11/21/18 09:10 Albumin/Globulin Ratio 0.9 Ratio (1.1-2.1) L 11/21/18 09:10 - Assessment and Plan 1: metastatic disease with Rt pleural effusion . will repeat chest xray in am and if needed will do thoracenthesis .
[2018-11-22 05:02] LABS: BASOPHILS % (AUTO) 0.5 % (0.2-1.0); EOSINOPHILS # (AUTO) 0.1 x10^3/uL (0.0-0.2); EOSINOPHILS % (AUTO) 0.7 % (0.9-2.9); HEMATOCRIT 31.5 % (36.0-47.0); HEMOGLOBIN 10.5 g/dL (12.0-16.0); LYMPHOCYTES # (AUTO) 1.7 X10^3/uL (1.3-2.9); LYMPHOCYTES % (AUTO) 18.1 % (21.0-51.0); MEAN CORPUSCULAR HEMOGLOBIN 29.9 pg (27.0-34.0); MEAN CORPUSCULAR HGB CONC 33.2 g/dL (33.0-35.0); MEAN PLATELET VOLUME 9.2 fL (7.4-11.0); MONOCYTES # (AUTO) 0.7 x10^3/uL (0.3-0.8); MONOCYTES % (AUTO) 7.5 % (0.0-13.0); NEUTROPHILS # (AUTO) 6.8 x10^3/uL (2.2-4.8); NEUTROPHILS % (AUTO) 73.2 % (42.0-75.0); PLATELET COUNT 293 X10^3/uL (150.0-450.0); WHITE BLOOD COUNT 9.3 X10^3/uL (3.6-10.0)
[2018-11-22] MEDS: ZOSYN VIAL 3.375 GRAMS 3.375 G in NS 100 ML IV + SPIKE MINIBAG* 100 ML IV SCH ×2 (05:03→13:50)
[2018-11-22 05:14] LABS: ALANINE AMINOTRANSFERASE 27 Units/L (12-78); ALBUMIN 2.9 g/dL (3.4-5.0); ALKALINE PHOSPHATASE 56 Units/L (46-116); ASPARTATE AMINO TRANSFERASE 18 Units/L (15-37); BLOOD UREA NITROGEN 19 mg/dL (7-18); CALCIUM 8.4 mg/dL (8.5-10.1); CARBON DIOXIDE 30.5 mmol/L (21-32); CHLORIDE 106 mmol/L (98-107); COR CA(FOR HYPOALB) 9.3 mg/dL (8.5-10.1); CREATININE 1.38 mg/dL (0.55-1.02); SODIUM 145 mmol/L (136-145); TOTAL PROTEIN 6.1 g/dL (6.4-8.2); eGFR NON BLACK RACES 40 (>60)
--- NOTE | 2018-11-22 06:16 | RAD ---
HISTORY: Shortness of breath Study: Chest PA and lateral Comparison: 11/20/2018 Findings: There is a port present on the right. The heart is within normal limits in size. No congestive heart failure is noted. The right upper lung field and left lung are clear. Increased density in the right lower lung field is due to a right pleural effusion and is unchanged. Thoracic spinal osteopenia with compression fractures again identified. IMPRESSION: Right basilar density representing right pleural effusion unchanged from the prior examination Reported By:
[2018-11-22] MEDS: DUONEB 0.5 MG/3 MG NEB SCH ×2 (08:17→12:02)
[2018-11-22] MEDS ORDERED: XYLOCAINE 1 % (PLAIN) ONE (09:27)
[2018-11-22] MEDS ORDERED: FENTANYL INJ 100 mcg ONE (09:49)
[2018-11-22] MEDS ORDERED: SOLU-Cortef INJ ONE (09:49)
--- NOTE | 2018-11-22 11:11 | DR.H&P ---
H&P - History & Physical for Day of: H&P Date: 11/21/18 - Chief Complaint Chief Complaint: SEVERE SHORTNESS OF BREATH - History of Present Illness History of Present Illness: IS A 72 YEAR OLD PATIENT OF OURS WHO PRESENTED TO THE HOSPITAL A DIRECT ADMISSION DUE TO COMPLAINTS OF SEVERE SHORTNESS OF BREATH. SHE REPORTS THAT SYMPTOMS STARTED APPROXIMATELY TWO DAYS PRIOR TO ARRIVAL. PATIENT HAS A HISTORY OF PRIMARY BREAST CANCER WITH METASTASIS. SHE HAS A HISTORY OF PLEURAL EFFUSIONS WITH EFFUSIONS BEING MALIGNANT. WE OBTAINED AN OUTPATIENT CHEST XRAY WHICH REVEALED: ENLARGING AND LIKELY LOCULATED RIGHT PLEURAL EFFUSION WITH RIGHT BASILAR ATELECTASIS. ON ADMISSION, VITALS WERE 98.4-95-20-95%-121/57. LABS WERE OBTAINED. ABNORMAL LAB VALUES INCLUDE THE FOLLOWING: WBC 14.3, HGB 11.2, HCT 34.5, BUN 23, CREATININE 1.76, GLUCOSE 157, ALBUMIN 3.2. WE OBTAINED A CHEST CT WITHOUT CONTRAST. IT REVEALED: Small bibasilar pleural effusions on the right greater the left with mild loculated fluid seen along the right lung base anterior laterally. There is mild subsegmental atelectasis vs infiltrates or scarring along the lung bases posteriorly and extending into the right middle lobe , recommend short-term follow-up. No pulmonary nodule or mass identified and no mediastinal adenopathy. Extensive osseous metastatic disease with no numerous pathologic fractures involving the thoracic and lumbar vertebra with no retropulsed fragment, suggest bone scan correlation. WE CONSULTED FOR POSSIBLE THORACENTESIS. SHE WAS STARTED ON NORMAL SALINE AT 30ML/HR, ZOSYN 3.375G IV TID, PHENERGAN 25MG IM Q6H PRN, ZOFRAN 4MG IV Q4H PRN, AND RESPIRATORY TREATMENTS. OTHERWISE, WE WILL FOLLOW UP WITH AM LABS AND CONTINUE TO MONITOR. - Past Medical History Past Medical History: Hypertension, Diabetes, Hypothyroidism Additional Medical History: BREAST CANCER. ADRENAL GLAND FAILURE - Past Surgical History Surgical History: Cholecystectomy, Hysterectomy, Mastectomy, Tonsillectomy - Family History Family Medical History: Cancer - Social History Does patient currently use any type of tobacco product: No Have you used tobacco products in the last 12 months: No Type of Tobacco Use: None Does any household member use tobacco: No Alcohol Use: None Drug Use: Prescription Drugs Prescription drug monitoring program results: PDMP was not reviewed - Medications Home Medications: codeine Allergy (Verified 07/17/17 15:43) levofloxacin [From Levaquin] Allergy (Verified 07/20/17 17:42) Sulfa (Sulfonamide Antibiotics) [SULFA] Allergy (Verified 07/17/17 15:43) CONTINUE taking the following medications clonazepam 2 mg PO TID 11/21/18 [History] esomeprazole magnesium 40 mg PO ONCE 11/21/18 [History] famotidine 20 mg PO BID 11/21/18 [History] gabapentin 300 mg PO TID 11/21/18 [History] insulin lispro [Humalog KwikPen Insulin] 1 unit SUBCUT TID 11/21/18 [History] levothyroxine 50 mcg PO ONCE 11/21/18 [History] magnesium oxide 1 tab PO QAM 11/21/18 [History] metformin 500 mg PO BID 11/21/18 [History] metoclopramide HCl 10 mg PO QACHS 11/21/18 [History] nitrofurantoin monohyd/m-cryst 100 mg PO BID 11/21/18 [History] pramipexole 1 mg PO TID 11/21/18 [History] propranolol 60 mg PO BID 11/21/18 [History] sitagliptin [Januvia] 50 mg PO ONCE 11/21/18 [History] triamterene-hydrochlorothiazid 1 tab PO QAM 11/21/18 [History] venlafaxine 75 mg PO BID 11/21/18 [History] - Review of Systems Constitutional: No Symptoms Reported Eyes: No Symptoms Reported ENT: No Symptoms Reported Respiratory: Shortness of Breath, SOB with Excertion Cardiovascular: No Symptoms Reported Gastrointestinal: No Symptoms Reported Genitourinary: No Symptoms Reported Musculoskeletal: No Symptoms Reported Skin: No Symptoms Reported Neurological: Weakness - Physical Exam Vital Signs: Temperature 97 F Pulse Rate 76 Respiratory Rate 21 Blood Pressure [Right Arm] 119/58 Blood Pressure 133/60 O2 Sat by Pulse Oximetry 100 Oriented: Normal Eyes: Normal Ear: Normal Nose: Normal Throat: Normal Respiratory: Diminished Throughout Cardiovascular: Normal : Normal Auscultation: Bowel Sounds: Normal Palpation: Normal Tenderness: Normal Skin: Normal Musculoskeletal: Normal Psychiatric: Normal Mood Description: Calm Affect: Normal Speech Pattern: Clear - Allergies Allergies/Adverse Reactions: Allergies Allergy/AdvReac Type Severity Reaction Status Date / Time codeine Allergy Verified 07/17/17 15:43 levofloxacin [From Levaquin] Allergy Verified 07/20/17 17:42 Sulfa (Sulfonamide Allergy Verified 07/17/17 15:43 Antibiotics) [SULFA]
--- NOTE | 2018-11-22 11:15 | RAD ---
HISTORY: Shortness of breath, pleural effusion, status post right-sided thoracentesis Study: Single-view chest Comparison: 11/22/2018. Findings: Right-sided LifePort is present with the tip in the lower SVC. There is right-sided pleural effusion which appears slightly smaller compared to prior studies. No pneumothorax is seen. Right basilar atelectasis or infiltrate is present. Left lung is clear. The heart size is normal. Osseous structures are intact. IMPRESSION: Slightly less right-sided pleural fluid compared to prior study. No pneumothorax is seen. Right basilar atelectasis or infiltrate is present. Reported By:
[2018-11-22] MEDS ORDERED: INDERAL TAB 10 MG PO SCH (11:30)
[2018-11-22] MEDS ORDERED: EFFEXOR TAB 75 MG (BID DOSING) PO SCH (12:00)
[2018-11-22] MEDS ORDERED: MACROBID CAP 100 MG EXT REL PO SCH (12:00)
[2018-11-22] MEDS ORDERED: REGLAN TAB 10 MG PO SCH (12:00)
[2018-11-22] MEDS ORDERED: PEPCID TAB 20 MG PO SCH (12:00)
[2018-11-22] MEDS ORDERED: SYNTHROID 50 mcg TAB PO SCH (12:00)
[2018-11-22] MEDS: HumuLIN R SUBCUT PRN ×2 (13:24→13:28)
[2018-11-22] MEDS ORDERED: MIRAPEX TAB 1 MG PO SCH (14:00)
[2018-11-22] MEDS ORDERED: NEURONTIN CAP 300 MG PO SCH (14:00)
[2018-11-22] MEDS ORDERED: KLONOPIN TAB 1 MG PO SCH (14:00)
[2018-11-22] MEDS ORDERED: VERSED ONE (15:45)
[2018-11-22] MEDS ORDERED: DIPRIVAN VIAL ONE (15:45)
[2018-11-22 16:16] VITALS: BP 111/58
[2018-11-22] MEDS ORDERED: GLUCOPHAGE PO SCH (21:00)
[2018-11-23] MEDS ORDERED: MAG-OX TAB PO SCH (09:00)
== END 2018-11-22 17:05 | disposition home or self-care (01) | DRG 187 ==
LOC: ICU 11-21 08:43
PROVIDERS: ADMIT Internal Medicine; ATTEND Internal Medicine
DX: J90 Pleural effusion, not elsewhere classified; E11.65 Type 2 diabetes mellitus with hyperglycemia; E03.8 Other specified hypothyroidism; Z85.3 Personal history of malignant neoplasm of breast; I10 Essential (primary) hypertension; R06.02 Shortness of breath; C79.9 Secondary malignant neoplasm of unspecified site
CPT/HCPCS: 36415; 71010; 71020; 71045; 71046; 71250; 80053; 85025; 87040; 94640; 99100; A4222; J1720; J1815; J2250; J2543; J2704; J3010; J7030; J7050; J7620

== ENCOUNTER 2020-09-26 16:49 | Inpatient (IN) ==
[2020-09-26] MEDS: CRESTOR TAB 10 MG PO SCH (23:38)
[2020-09-26] MEDS: EFFEXOR TAB 75 MG (BID DOSING) PO SCH (23:38)
[2020-09-26] MEDS: REGLAN TAB 10 MG PO SCH (23:38)
[2020-09-26] MEDS: LYRICA CAP 50 mg PO SCH (23:39)
[2020-09-26] MEDS: LR 1000 ML IV 1,000 ML IV SCH (23:39)
[2020-09-26] MEDS: KLONOPIN TAB 1 MG PO PRN (23:39)
[2020-09-26 23:59] VITALS: BMI 23.6
[2020-09-27] MEDS: LYRICA CAP 50 mg PO SCH ×3 (06:06→21:54)
[2020-09-27] MEDS: SYNTHROID 50 mcg TAB PO SCH (06:07)
[2020-09-27] MEDS: REGLAN TAB 10 MG PO SCH ×4 (06:07→21:54)
[2020-09-27 06:49] LABS: BILIRUBIN,URINE NEGATIVE (NEGATIVE); BLOOD/HEMOGLOBIN,URINE 3+ (NEGATIVE); GLUCOSE, URINE NEGATIVE (NEGATIVE); KETONES,URINE NEGATIVE (NEGATIVE); LEUKOCYTE ESTERASE ,URINE NEGATIVE (NEGATIVE); NITRITES,URINE NEGATIVE (NEGATIVE); PROTEIN,URINE 1+ (NEGATIVE); UROBILINOGEN,URINE NORMAL (NORMAL)
[2020-09-27 06:53] LABS: APPEARANCE,URINE CLEAR (CLEAR); COLOR,URINE YELLOW (YELLOW)
[2020-09-27 07:05] LABS: SQUAMOUS EPITHELIAL CELL,UR FEW /HPF (NEGATIVE)
[2020-09-27 07:06] LABS: BACTERIA,URINE 1+ /HPF (NEGATIVE); COARSE GRANULAR CASTS,URINE FEW /HPF (NEGATIVE)
[2020-09-27] MEDS: LASIX PO SCH (09:54)
[2020-09-27] MEDS: INDERAL TAB 10 MG PO SCH (09:54)
[2020-09-27] MEDS: MAXZIDE 37.5/25 MG PO SCH (09:54)
[2020-09-27] MEDS: NexIUM PO SCH (09:55)
[2020-09-27] MEDS: PEPCID TAB 20 MG PO SCH (09:55)
[2020-09-27] MEDS: NORVASC TAB 5 MG PO SCH (09:55)
[2020-09-27] MEDS: EFFEXOR TAB 75 MG (BID DOSING) PO SCH ×2 (09:55→21:54)
[2020-09-27] MEDS: ROXICODONE TAB 5 MG PO PRN ×3 (10:03→22:00)
[2020-09-27 10:38] LABS: BASOPHILS # (AUTO) 0.1 X10^3/uL (0.0-0.1); BASOPHILS % (AUTO) 0.7 % (0.2-1.0); EOSINOPHILS # (AUTO) 0.2 x10^3/uL (0.0-0.2); HEMATOCRIT 32.9 % (36.0-47.0); HEMOGLOBIN 10.7 g/dL (12.0-16.0); LYMPHOCYTES # (AUTO) 0.8 X10^3/uL (1.3-2.9); LYMPHOCYTES % (AUTO) 9.8 % (21.0-51.0); MEAN CORPUSCULAR HEMOGLOBIN 30.2 pg (27.0-34.0); MEAN CORPUSCULAR HGB CONC 32.5 g/dL (33.0-35.0); MEAN CORPUSCULAR VOLUME 92.7 fL (80.0-100.0); MEAN PLATELET VOLUME 8.6 fL (7.4-11.0); MONOCYTES % (AUTO) 11.9 % (0.0-13.0); NEUTROPHILS # (AUTO) 6.1 x10^3/uL (2.2-4.8); NEUTROPHILS % (AUTO) 75.6 % (42.0-75.0); PLATELET COUNT 267 X10^3/uL (150.0-450.0); RED BLOOD COUNT 3.55 X10^6/uL (3.5-5.4); RED CELL DISTRIBUTION WIDTH 18.5 % (11.6-16.5)
[2020-09-27 10:54] LABS: ALBUMIN 1.9 g/dL (3.4-5.0); CALCIUM 8.5 mg/dL (8.5-10.1); CARBON DIOXIDE 23.7 mmol/L (21-32); COR CA(FOR HYPOALB) 10.2 mg/dL (8.5-10.1); CREATININE 1.34 mg/dL (0.55-1.02); TOTAL PROTEIN 5.7 g/dL (6.4-8.2)
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
[2020-09-27] MEDS: HumuLIN R SC PRN (12:22)
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
[2020-09-27] MEDS: LR 1000 ML IV 1,000 ML IV SCH ×2 (12:36→23:36)
[2020-09-27] MEDS: LIDODERM 5% PATCH TD SCH (14:37)
[2020-09-27] MEDS: NYSTATIN POWDER TOP SCH (14:37)
[2020-09-27] MEDS: BACTROBAN CREAM TOP SCH ×2 (15:03→21:54)
[2020-09-27] MEDS ORDERED: DUONEB 0.5 MG/3 MG (3 mL) NEB ONE (17:57)
[2020-09-27] MEDS: DUONEB 0.5 MG/3 MG (3 mL) NEB PRN ×2 (18:00→20:46)
[2020-09-27] MEDS: CRESTOR TAB 10 MG PO SCH (21:54)
[2020-09-28] MEDS: LR 1000 ML IV 1,000 ML IV SCH ×3 (03:01→17:09)
[2020-09-28] MEDS: NYSTATIN POWDER TOP SCH ×3 (03:01→20:56)
[2020-09-28] MEDS: REGLAN TAB 10 MG PO SCH ×4 (05:36→20:54)
[2020-09-28] MEDS: LYRICA CAP 50 mg PO SCH ×3 (05:36→21:20)
[2020-09-28] MEDS: SYNTHROID 50 mcg TAB PO SCH (05:36)
[2020-09-28] MEDS: ROXICODONE TAB 5 MG PO PRN ×2 (05:46→15:06)
[2020-09-28] MEDS: DUONEB 0.5 MG/3 MG (3 mL) NEB PRN ×2 (09:05→16:43)
[2020-09-28] MEDS: NexIUM PO SCH (09:43)
[2020-09-28] MEDS: EFFEXOR TAB 75 MG (BID DOSING) PO SCH ×2 (09:43→20:55)
[2020-09-28] MEDS: LOVENOX INJ 40 MG SYR SC SCH (09:43)
[2020-09-28] MEDS: LASIX PO SCH (09:44)
[2020-09-28] MEDS: NORVASC TAB 5 MG PO SCH (09:44)
[2020-09-28] MEDS: INDERAL TAB 10 MG PO SCH (09:44)
[2020-09-28] MEDS: MAXZIDE 37.5/25 MG PO SCH (09:45)
[2020-09-28] MEDS: LIDODERM 5% PATCH TD SCH (09:45)
[2020-09-28] MEDS: PEPCID TAB 20 MG PO SCH (09:46)
[2020-09-28] MEDS: BACTROBAN CREAM TOP SCH ×3 (09:46→20:55)
[2020-09-28] MEDS: HumuLIN R SC PRN (12:10)
[2020-09-28] MEDS: CRESTOR TAB 10 MG PO SCH (20:54)
[2020-09-28] MEDS: MILK OF MAGNESIA PO SCH (20:55)
[2020-09-29] MEDS: LR 1000 ML IV 1,000 ML IV SCH ×4 (00:33→16:21)
[2020-09-29] MEDS: LYRICA CAP 50 mg PO SCH ×3 (06:01→21:13)
[2020-09-29] MEDS: REGLAN TAB 10 MG PO SCH ×4 (06:02→20:42)
[2020-09-29] MEDS: SYNTHROID 50 mcg TAB PO SCH (06:02)
[2020-09-29 06:24] LABS: BASOPHILS # (AUTO) 0.1 X10^3/uL (0.0-0.1); BASOPHILS % (AUTO) 0.9 % (0.2-1.0); EOSINOPHILS # (AUTO) 0.3 x10^3/uL (0.0-0.2); EOSINOPHILS % (AUTO) 3.2 % (0.9-2.9); HEMATOCRIT 29.9 % (36.0-47.0); HEMOGLOBIN 9.9 g/dL (12.0-16.0); LYMPHOCYTES # (AUTO) 1.9 X10^3/uL (1.3-2.9); LYMPHOCYTES % (AUTO) 18.7 % (21.0-51.0); MEAN CORPUSCULAR HEMOGLOBIN 30.3 pg (27.0-34.0); MEAN CORPUSCULAR HGB CONC 33.2 g/dL (33.0-35.0); MEAN CORPUSCULAR VOLUME 91.3 fL (80.0-100.0); MEAN PLATELET VOLUME 8.5 fL (7.4-11.0); MONOCYTES # (AUTO) 1.7 x10^3/uL (0.3-0.8); MONOCYTES % (AUTO) 16.2 % (0.0-13.0); NEUTROPHILS # (AUTO) 6.3 x10^3/uL (2.2-4.8); PLATELET COUNT 276 X10^3/uL (150.0-450.0); RED BLOOD COUNT 3.28 X10^6/uL (3.5-5.4); WHITE BLOOD COUNT 10.4 X10^3/uL (3.6-10.0)
[2020-09-29 06:43] LABS: ALANINE AMINOTRANSFERASE 30 Units/L (12-78); ALBUMIN 1.8 g/dL (3.4-5.0); ALKALINE PHOSPHATASE 101 Units/L (46-116); ASPARTATE AMINO TRANSFERASE 37 Units/L (15-37); BLOOD UREA NITROGEN 12 mg/dL (7-18); CALCIUM 8.9 mg/dL (8.5-10.1); CHLORIDE 103 mmol/L (98-107); COR CA(FOR HYPOALB) 10.7 mg/dL (8.5-10.1); COR NA(FOR HYPERGLY) 142 mmol/L (136-145); CREATININE 1.02 mg/dL (0.55-1.02); SODIUM 140 mmol/L (136-145); TOTAL PROTEIN 5.3 g/dL (6.4-8.2); eGFR NON BLACK RACES 56 (>60)
[2020-09-29] MEDS: DUONEB 0.5 MG/3 MG (3 mL) NEB PRN ×2 (06:44→09:14)
[2020-09-29] MEDS: TYLENOL 325 MG TAB PO PRN ×2 (07:00→21:14)
[2020-09-29 07:15] LABS: BAND NEUTROPHILS % 1 % (0-10)
[2020-09-29 07:16] LABS: ANISOCYTOSIS SLIGHT; PLATELET MORPHOLOGY COMMENT NORMAL (NORMAL)
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
[2020-09-29] MEDS: NexIUM PO SCH (09:41)
[2020-09-29] MEDS: INDERAL TAB 10 MG PO SCH (09:41)
[2020-09-29] MEDS: LASIX PO SCH (09:42)
[2020-09-29] MEDS: EFFEXOR TAB 75 MG (BID DOSING) PO SCH ×2 (09:42→20:41)
[2020-09-29] MEDS: MAXZIDE 37.5/25 MG PO SCH (09:42)
[2020-09-29] MEDS: PEPCID TAB 20 MG PO SCH (09:42)
[2020-09-29] MEDS: NORVASC TAB 5 MG PO SCH (09:42)
[2020-09-29] MEDS: MILK OF MAGNESIA PO SCH ×2 (09:43→20:42)
[2020-09-29] MEDS: LOVENOX INJ 40 MG SYR SC SCH (09:43)
[2020-09-29] MEDS: TORADOL 60 MG VIAL IM PRN (09:43)
[2020-09-29] MEDS: NYSTATIN POWDER TOP SCH ×2 (09:52→20:42)
[2020-09-29] MEDS: BACTROBAN CREAM TOP SCH ×2 (09:52→20:41)
[2020-09-29] MEDS: ROXICODONE TAB 5 MG PO PRN (10:23)
[2020-09-29] MEDS: ROCEPHIN VIAL 1 GRAM 1 G in NS 100 ML IV + SPIKE MINIBAG* 100 ML IV SCH (10:35)
[2020-09-29] MEDS: LIDODERM 5% PATCH TD SCH (11:17)
[2020-09-29] MEDS: HumuLIN R SC PRN (11:56)
--- NOTE | 2020-09-29 12:58 | PT/OTEVAL ---
PT/OT OBJECTIVES - HISTORY PMH: Diabetes, Hypertension and Hypothyroidism Prior Level of Function: Independent - COGNITION Mental Status: Alert, Oriented, Anxious Communication Status: Verbal Ability to Follow Directions: 2 Step Memory Loss: None - PAIN lowerback Pain Scale: Moderate (5-6) - BED MOBILITY Rolling: Moderate, x2 - TRANSFERS Sit to Stand: Maximum, x1 - ADL'S Feeding: Supervision Grooming: Minimum, X1 Upper Body ADL: Moderate, X1 Lower Body ADL: Maximum, X1 Toileting: Dependent - BALANCE Dynamic Sitting: Fair Standing: Not Tested Balance Comment: brace in room and put on to allow for sitting Static Sitting: Fair Standing: Poor - NEUROMOTOR/SENSATION Julio. Upper Ext Sensation: WFL Coordination: WFL Julio. Lower Ext Sensation: WFL Coordination: WFL - HAND DOMINANCE Extremity Function: Hand Dominance: Right - ROM Bilateral UE ROM: WFL Muscle Tone: WFL - STRENGTH Bilateral UE Strength Number: 3 Bilateral LE Other comment: 3-/5 grossly graded Bilateral Shoulder Strength Number: 3 PT/OT ASSESSMENT - OT Problem List: Decreased Mobility ADL's, Decreased Dressing, Decreased UE Strength - PT GOALS Short Term Goals Days: 10 Mobility: improve bed mobility to part/mod A Transfers: improve STS & functional transfers to part/mod A Gait: initiate gait using RW x 10-15ft at part/mod A Balance: improve sitting S/D to G/G ROM/Strength: increase B LE ms strength to 4/5 Others: decrease pain on lowback region to PS 3/10 during mobility tasks Care Home Goals Days: 20 Mobility: improve bed mobility to supv/touch A Transfers: improve STS & functional transfers to supv/touch A Gait: gait using RW for =/>200ft at supv/touch A to set up A w/o LOB noted Balance: improve sitting S/D to G/F+ ROM/Strength: increase B LE ms strength to 4+/5 Others: EMSS to =/>15 - OT GOALS Asphalt Spreader Goals Days: 20 Mobility for ADL's: Pt to improve bed mobility to sup/touch A in prep for self care skills Dressing: Pt to complete LB dressing with sup/touch A or better with or without AE Upper Ext. Strength/Use: pt to participate in UE exercises in bed or eob for at least 10 min Other: Pt to complete functional transfer from one surface to another with mod x 2 Short Term Goals Days: 10 Mobility for ADL's: pt to complete bed mobilty with mod A in prep for self care skils Dressing: pt to complete UB/LB dressing with part mod A Upper Ext. Strength/Use: pt to participate in UE exercises sitting up in bed for at least 10 min - PATIENT GOALS Patient/Family Goals: return home Goals Discussed with Patient/Family: Yes - PLAN Suggested Treatment Plan: Bed Mobility Training, Therapeutic Activity, Self Care Training, Therapeutic Ex with HEP, Family Education - FREQUENCY AND DURATION OT: 5 x week Expected Continuation of Care at Discharge: Determined on Progress Anticipated Equipment Needs: back brace during OOB activities, walker
[2020-09-29] MEDS: CRESTOR TAB 10 MG PO SCH (20:41)
[2020-09-30] MEDS: LR 1000 ML IV 1,000 ML IV SCH ×3 (03:58→18:47)
[2020-09-30] MEDS: REGLAN TAB 10 MG PO SCH ×4 (05:46→20:49)
[2020-09-30] MEDS: LYRICA CAP 50 mg PO SCH ×3 (05:46→21:32)
[2020-09-30] MEDS: SYNTHROID 50 mcg TAB PO SCH (05:47)
[2020-09-30] MEDS: DUONEB 0.5 MG/3 MG (3 mL) NEB PRN ×2 (09:28→13:17)
[2020-09-30] MEDS: EFFEXOR TAB 75 MG (BID DOSING) PO SCH ×2 (09:47→20:49)
[2020-09-30] MEDS: NexIUM PO SCH (09:47)
[2020-09-30] MEDS: LASIX PO SCH (09:47)
[2020-09-30] MEDS: INDERAL TAB 10 MG PO SCH (09:47)
[2020-09-30] MEDS: MAXZIDE 37.5/25 MG PO SCH (09:47)
[2020-09-30] MEDS: PEPCID TAB 20 MG PO SCH (09:48)
[2020-09-30] MEDS: NORVASC TAB 5 MG PO SCH (09:48)
[2020-09-30] MEDS: ROCEPHIN VIAL 1 GRAM 1 G in NS 100 ML IV + SPIKE MINIBAG* 100 ML IV SCH (09:48)
[2020-09-30] MEDS: NYSTATIN POWDER TOP SCH ×2 (09:49→20:49)
[2020-09-30] MEDS: MILK OF MAGNESIA PO SCH ×2 (09:49→20:49)
[2020-09-30] MEDS: LIDODERM 5% PATCH TD SCH (09:49)
[2020-09-30] MEDS: BACTROBAN CREAM TOP SCH ×2 (09:49→20:48)
[2020-09-30] MEDS: LOVENOX INJ 40 MG SYR SC SCH (09:50)
[2020-09-30] MEDS: TORADOL 60 MG VIAL IM PRN (10:02)
[2020-09-30] MEDS: MIRALAX POWDER (1 DOSE 17 G) PO SCH (10:56)
[2020-09-30] MEDS: COLACE CAP 100 MG PO SCH ×2 (10:56→20:48)
[2020-09-30] MEDS: ROXICODONE TAB 5 MG PO PRN (10:57)
[2020-09-30] MEDS: HumuLIN R SC PRN ×2 (11:36→17:27)
[2020-09-30] MEDS: SNACK - Diabetic Appropriate PO SCH (20:15)
[2020-09-30] MEDS: CRESTOR TAB 10 MG PO SCH (20:48)
[2020-10-01] MEDS: LYRICA CAP 50 mg PO SCH ×3 (05:32→21:32)
[2020-10-01] MEDS: LR 1000 ML IV 1,000 ML IV SCH ×2 (05:33→21:36)
[2020-10-01] MEDS: SYNTHROID 50 mcg TAB PO SCH (05:33)
[2020-10-01] MEDS: REGLAN TAB 10 MG PO SCH ×4 (05:33→21:31)
[2020-10-01] MEDS: INDERAL TAB 10 MG PO SCH (09:02)
[2020-10-01] MEDS: LASIX PO SCH (09:03)
[2020-10-01] MEDS: MAXZIDE 37.5/25 MG PO SCH (09:03)
[2020-10-01] MEDS: MILK OF MAGNESIA PO SCH ×2 (09:03→21:38)
[2020-10-01] MEDS: COLACE CAP 100 MG PO SCH ×2 (09:03→21:31)
[2020-10-01] MEDS: NORVASC TAB 5 MG PO SCH (09:03)
[2020-10-01] MEDS: BACTROBAN CREAM TOP SCH ×3 (09:04→21:36)
[2020-10-01] MEDS: ROCEPHIN VIAL 1 GRAM 1 G in NS 100 ML IV + SPIKE MINIBAG* 100 ML IV SCH (09:04)
[2020-10-01] MEDS: EFFEXOR TAB 75 MG (BID DOSING) PO SCH ×2 (09:04→21:31)
[2020-10-01] MEDS: NexIUM PO SCH (09:04)
[2020-10-01] MEDS: MIRALAX POWDER (1 DOSE 17 G) PO SCH (09:05)
[2020-10-01] MEDS: LIDODERM 5% PATCH TD SCH (09:06)
[2020-10-01] MEDS: NYSTATIN POWDER TOP SCH ×2 (09:06→21:37)
[2020-10-01] MEDS: PEPCID TAB 20 MG PO SCH (09:06)
[2020-10-01] MEDS: LOVENOX INJ 40 MG SYR SC SCH (09:07)
[2020-10-01] MEDS: TORADOL 60 MG VIAL IM PRN (12:05)
[2020-10-01] MEDS: ZOFRAN INJ 4 MG VIAL IVP PRN (12:05)
[2020-10-01] MEDS: HumuLIN R SC PRN (13:52)
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
[2020-10-01] MEDS: CHECK PATCH XX SCH (21:15)
[2020-10-01] MEDS: CRESTOR TAB 10 MG PO SCH (21:31)
[2020-10-01] MEDS: KLONOPIN TAB 1 MG PO PRN (21:31)
[2020-10-01] MEDS: ROXICODONE TAB 5 MG PO PRN (21:33)
[2020-10-02 06:08] LABS: BASOPHILS # (AUTO) 0.1 X10^3/uL (0.0-0.1); BASOPHILS % (AUTO) 0.7 % (0.2-1.0); EOSINOPHILS # (AUTO) 0.3 x10^3/uL (0.0-0.2); EOSINOPHILS % (AUTO) 3.5 % (0.9-2.9); HEMATOCRIT 28.8 % (36.0-47.0); HEMOGLOBIN 9.3 g/dL (12.0-16.0); LYMPHOCYTES # (AUTO) 1.8 X10^3/uL (1.3-2.9); LYMPHOCYTES % (AUTO) 18.3 % (21.0-51.0); MEAN CORPUSCULAR HEMOGLOBIN 29.7 pg (27.0-34.0); MEAN CORPUSCULAR HGB CONC 32.5 g/dL (33.0-35.0); MEAN CORPUSCULAR VOLUME 91.5 fL (80.0-100.0); MEAN PLATELET VOLUME 8.9 fL (7.4-11.0); MONOCYTES # (AUTO) 1.2 x10^3/uL (0.3-0.8); MONOCYTES % (AUTO) 12.2 % (0.0-13.0); NEUTROPHILS # (AUTO) 6.4 x10^3/uL (2.2-4.8); NEUTROPHILS % (AUTO) 65.3 % (42.0-75.0); PLATELET COUNT 344 X10^3/uL (150.0-450.0); RED BLOOD COUNT 3.14 X10^6/uL (3.5-5.4); RED CELL DISTRIBUTION WIDTH 17.6 % (11.6-16.5); WHITE BLOOD COUNT 9.8 X10^3/uL (3.6-10.0)
[2020-10-02] MEDS: LYRICA CAP 50 mg PO SCH ×3 (06:13→21:51)
[2020-10-02] MEDS: REGLAN TAB 10 MG PO SCH ×4 (06:13→21:52)
[2020-10-02] MEDS: SYNTHROID 50 mcg TAB PO SCH (06:14)
[2020-10-02 06:31] LABS: ALANINE AMINOTRANSFERASE 22 Units/L (12-78); ALBUMIN 1.7 g/dL (3.4-5.0); ALKALINE PHOSPHATASE 110 Units/L (46-116); ASPARTATE AMINO TRANSFERASE 22 Units/L (15-37); BLOOD UREA NITROGEN 13 mg/dL (7-18); CALCIUM 8.6 mg/dL (8.5-10.1); CARBON DIOXIDE 29.8 mmol/L (21-32); CHLORIDE 102 mmol/L (98-107); COR CA(FOR HYPOALB) 10.4 mg/dL (8.5-10.1); COR NA(FOR HYPERGLY) 138 mmol/L (136-145); CREATININE 1.13 mg/dL (0.55-1.02); SODIUM 136 mmol/L (136-145); eGFR NON BLACK RACES 50 (>60)
[2020-10-02] MEDS: TORADOL 60 MG VIAL IM PRN (08:37)
[2020-10-02] MEDS: DUONEB 0.5 MG/3 MG (3 mL) NEB PRN ×2 (09:05→20:45)
[2020-10-02] MEDS: LOVENOX INJ 40 MG SYR SC SCH (09:45)
[2020-10-02] MEDS: LASIX PO SCH (09:51)
[2020-10-02] MEDS: INDERAL TAB 10 MG PO SCH (09:51)
[2020-10-02] MEDS: EFFEXOR TAB 75 MG (BID DOSING) PO SCH ×2 (09:56→21:50)
[2020-10-02] MEDS: BACTROBAN CREAM TOP SCH ×2 (09:56→21:53)
[2020-10-02] MEDS: COLACE CAP 100 MG PO SCH ×2 (09:56→21:51)
[2020-10-02] MEDS: MAXZIDE 37.5/25 MG PO SCH (09:57)
[2020-10-02] MEDS: MILK OF MAGNESIA PO SCH ×2 (09:58→21:53)
[2020-10-02] MEDS: NexIUM PO SCH (09:58)
[2020-10-02] MEDS: MIRALAX POWDER (1 DOSE 17 G) PO SCH (09:58)
[2020-10-02] MEDS: NORVASC TAB 5 MG PO SCH (09:58)
[2020-10-02] MEDS: NYSTATIN POWDER TOP SCH ×2 (09:59→21:52)
[2020-10-02] MEDS: PEPCID TAB 20 MG PO SCH (09:59)
[2020-10-02] MEDS: TYLENOL 325 MG TAB PO PRN (10:04)
[2020-10-02] MEDS: LR 1000 ML IV 1,000 ML IV SCH (10:27)
[2020-10-02] MEDS: OMNICEF CAP 300 MG PO SCH ×2 (10:30→21:50)
--- NOTE | 2020-10-02 11:45 | RAD ---
HISTORYSOBSTUDYCHEST x-ray, 1 VIEWCOMPARISONX-ray 11/22/2018Moderate right pleural effusion is similar to prior study. There is small left pleural effusion that may be new since prior study. Probable areas of atelectasis are seen in both lungs. Appearance on the right is similar to prior study with slight increase in probable atelectasis in the left lung.No definite lung nodules are seen but sclerotic bone metastases are suspected, similar to prior study. Port catheter terminates in the region of the distal SVC. Heart is probably normal in size. No pneumothorax is seen.IMPRESSIONPossible slight worsening of small left pleural effusion. Persistent right pleural effusion is seen.Sclerotic bone metastases are similar to prior study.Electronically signed by: Fam Ghosh (Oct 02, 2020 11:43:35)
[2020-10-02] MEDS: HumuLIN R SC PRN ×2 (12:22→17:11)
[2020-10-02] MEDS ORDERED: LASIX IVP ONE (15:01)
[2020-10-02] MEDS: LIDODERM 5% PATCH TD SCH (15:25)
[2020-10-02] MEDS: ROXICODONE TAB 5 MG PO PRN (20:00)
[2020-10-02] MEDS: CRESTOR TAB 10 MG PO SCH (21:50)
[2020-10-02] MEDS: KLONOPIN TAB 1 MG PO PRN (21:50)
[2020-10-03] MEDS: LYRICA CAP 50 mg PO SCH ×3 (06:10→22:06)
[2020-10-03] MEDS: REGLAN TAB 10 MG PO SCH ×4 (06:10→20:51)
[2020-10-03] MEDS: SYNTHROID 50 mcg TAB PO SCH (06:29)
[2020-10-03] MEDS: OMNICEF CAP 300 MG PO SCH (08:41)
[2020-10-03] MEDS: EFFEXOR TAB 75 MG (BID DOSING) PO SCH ×2 (08:41→20:51)
[2020-10-03] MEDS: INDERAL TAB 10 MG PO SCH (08:42)
[2020-10-03] MEDS: NORVASC TAB 5 MG PO SCH (08:43)
[2020-10-03] MEDS: DUONEB 0.5 MG/3 MG (3 mL) NEB SCH ×4 (08:55→20:10)
[2020-10-03] MEDS: COLACE CAP 100 MG PO SCH ×2 (08:57→20:51)
[2020-10-03] MEDS: BACTROBAN CREAM TOP SCH ×2 (08:57→20:51)
[2020-10-03] MEDS: LIDODERM 5% PATCH TD SCH (08:58)
[2020-10-03] MEDS: LOVENOX INJ 40 MG SYR SC SCH (08:58)
[2020-10-03] MEDS: LASIX PO SCH (08:58)
[2020-10-03] MEDS: PEPCID TAB 20 MG PO SCH (08:59)
[2020-10-03] MEDS: MAXZIDE 37.5/25 MG PO SCH (08:59)
[2020-10-03] MEDS: NYSTATIN POWDER TOP SCH ×2 (08:59→20:51)
[2020-10-03] MEDS: MILK OF MAGNESIA PO SCH ×2 (08:59→22:04)
[2020-10-03] MEDS: MIRALAX POWDER (1 DOSE 17 G) PO SCH (08:59)
[2020-10-03] MEDS: NexIUM PO SCH (08:59)
[2020-10-03] MEDS ORDERED: SOLU-Medrol 125 MG VIAL IVP ONE (09:56)
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
[2020-10-03] MEDS: PULMICORT NEB TX 0.5 MG NEB SCH ×3 (10:42→20:10)
[2020-10-03] MEDS: FORTAZ or TAZICEF VIAL INJ 1 G in NS 100 ML IV + SPIKE MINIBAG* 100 ML IV SCH ×3 (12:02→22:05)
[2020-10-03] MEDS: SOLU-Medrol 40 MG VIAL IVP SCH ×2 (13:45→22:06)
[2020-10-03] MEDS ORDERED: XANAX PO PRN (14:27)
[2020-10-03] MEDS: TYLENOL 325 MG TAB PO PRN (14:36)
[2020-10-03] MEDS: TORADOL 60 MG VIAL IM PRN (15:33)
[2020-10-03] MEDS: HumuLIN R SC PRN ×2 (16:32→22:06)
[2020-10-03] MEDS: CRESTOR TAB 10 MG PO SCH (20:51)
[2020-10-03] MEDS: KLONOPIN TAB 1 MG PO PRN (22:06)
[2020-10-04] MEDS: DUONEB 0.5 MG/3 MG (3 mL) NEB SCH ×4 (01:00→20:30)
[2020-10-04] MEDS: LYRICA CAP 50 mg PO SCH ×3 (06:09→21:21)
[2020-10-04] MEDS: FORTAZ or TAZICEF VIAL INJ 1 G in NS 100 ML IV + SPIKE MINIBAG* 100 ML IV SCH ×3 (06:09→21:21)
[2020-10-04] MEDS: SOLU-Medrol 40 MG VIAL IVP SCH ×3 (06:10→21:21)
[2020-10-04] MEDS: SYNTHROID 50 mcg TAB PO SCH (06:10)
[2020-10-04] MEDS: REGLAN TAB 10 MG PO SCH ×4 (06:10→21:21)
[2020-10-04] MEDS: HumuLIN R SC PRN ×4 (06:21→23:46)
[2020-10-04] MEDS: BACTROBAN CREAM TOP SCH ×2 (08:06→21:19)
[2020-10-04] MEDS: LOVENOX INJ 40 MG SYR SC SCH (08:07)
[2020-10-04] MEDS: COLACE CAP 100 MG PO SCH ×2 (08:07→21:20)
[2020-10-04] MEDS: MAXZIDE 37.5/25 MG PO SCH (08:08)
[2020-10-04] MEDS: EFFEXOR TAB 75 MG (BID DOSING) PO SCH ×2 (08:08→21:20)
[2020-10-04] MEDS: NexIUM PO SCH (08:08)
[2020-10-04] MEDS: NORVASC TAB 5 MG PO SCH (08:08)
[2020-10-04] MEDS: LASIX PO SCH (08:08)
[2020-10-04] MEDS: MILK OF MAGNESIA PO SCH ×2 (08:09→21:20)
[2020-10-04] MEDS: MIRALAX POWDER (1 DOSE 17 G) PO SCH (08:09)
[2020-10-04] MEDS: NYSTATIN POWDER TOP SCH ×2 (08:09→21:20)
[2020-10-04] MEDS: LIDODERM 5% PATCH TD SCH (08:09)
[2020-10-04] MEDS: PEPCID TAB 20 MG PO SCH (08:10)
[2020-10-04] MEDS: PULMICORT NEB TX 0.5 MG NEB SCH ×2 (09:00→20:30)
[2020-10-04] MEDS: PATIENT'S HOME MEDICATION PO SCH (09:39)
[2020-10-04] MEDS: MORPHINE SULFATE INJ 2 MG INJ IVP PRN ×2 (13:58→23:50)
[2020-10-04] MEDS: TYLENOL 325 MG TAB PO PRN (17:33)
[2020-10-04] MEDS: CRESTOR TAB 10 MG PO SCH (21:20)
[2020-10-04] MEDS: KLONOPIN TAB 1 MG PO PRN (21:21)
[2020-10-05] MEDS: LYRICA CAP 50 mg PO SCH ×3 (05:58→21:12)
[2020-10-05] MEDS: SOLU-Medrol 40 MG VIAL IVP SCH ×2 (05:58→15:31)
[2020-10-05] MEDS: SYNTHROID 50 mcg TAB PO SCH (05:58)
[2020-10-05] MEDS: REGLAN TAB 10 MG PO SCH ×4 (05:58→21:12)
[2020-10-05] MEDS: FORTAZ or TAZICEF VIAL INJ 1 G in NS 100 ML IV + SPIKE MINIBAG* 100 ML IV SCH ×3 (05:58→21:12)
[2020-10-05] MEDS: HumuLIN R SC PRN ×4 (06:20→21:13)
[2020-10-05 06:23] LABS: CALCIUM 8.5 mg/dL (8.5-10.1); CARBON DIOXIDE 32.4 mmol/L (21-32); COR CA(FOR HYPOALB) 10.1 mg/dL (8.5-10.1); CREATININE 1.36 mg/dL (0.55-1.02); TOTAL PROTEIN 5.7 g/dL (6.4-8.2)
[2020-10-05 06:29] LABS: BASOPHILS % (AUTO) 0.1 % (0.2-1.0); LYMPHOCYTES # (AUTO) 0.9 X10^3/uL (1.3-2.9); LYMPHOCYTES % (AUTO) 4.6 % (21.0-51.0); MEAN CORPUSCULAR HGB CONC 33.4 g/dL (33.0-35.0); MEAN PLATELET VOLUME 8.7 fL (7.4-11.0); MONOCYTES # (AUTO) 0.8 x10^3/uL (0.3-0.8); MONOCYTES % (AUTO) 4.3 % (0.0-13.0); NEUTROPHILS # (AUTO) 17.1 x10^3/uL (2.2-4.8); PLATELET COUNT 505 X10^3/uL (150.0-450.0); RED CELL DISTRIBUTION WIDTH 17.2 % (11.6-16.5); WHITE BLOOD COUNT 18.8 X10^3/uL (3.6-10.0)
[2020-10-05 07:09] LABS: ANISOCYTOSIS SLIGHT; PLATELET MORPHOLOGY COMMENT NORMAL (NORMAL)
[2020-10-05] MEDS: NYSTATIN POWDER TOP SCH ×2 (09:07→20:54)
[2020-10-05] MEDS: LIDODERM 5% PATCH TD SCH (09:07)
[2020-10-05] MEDS: LOVENOX INJ 40 MG SYR SC SCH (09:09)
[2020-10-05] MEDS: MILK OF MAGNESIA PO SCH ×2 (09:10→20:53)
[2020-10-05] MEDS: COLACE CAP 100 MG PO SCH ×2 (09:10→20:53)
[2020-10-05] MEDS: MAXZIDE 37.5/25 MG PO SCH (09:11)
[2020-10-05] MEDS: NexIUM PO SCH (09:11)
[2020-10-05] MEDS: EFFEXOR TAB 75 MG (BID DOSING) PO SCH ×2 (09:11→20:53)
[2020-10-05] MEDS: PEPCID TAB 20 MG PO SCH (09:11)
[2020-10-05] MEDS: NORVASC TAB 5 MG PO SCH (09:11)
[2020-10-05] MEDS: MIRALAX POWDER (1 DOSE 17 G) PO SCH (09:12)
[2020-10-05] MEDS: LASIX PO SCH (09:12)
[2020-10-05] MEDS: BACTROBAN CREAM TOP SCH ×2 (09:13→20:53)
[2020-10-05] MEDS: ROXICODONE TAB 5 MG PO PRN (09:16)
[2020-10-05] MEDS: PATIENT'S HOME MEDICATION PO SCH (09:16)
[2020-10-05] MEDS: DUONEB 0.5 MG/3 MG (3 mL) NEB SCH ×4 (10:00→20:51)
[2020-10-05] MEDS: PULMICORT NEB TX 0.5 MG NEB SCH ×2 (10:00→20:51)
[2020-10-05] MEDS: TYLENOL 325 MG TAB PO PRN (12:27)
[2020-10-05] MEDS: MORPHINE SULFATE INJ 2 MG INJ IVP PRN (18:33)
[2020-10-05] MEDS: CRESTOR TAB 10 MG PO SCH (20:53)
[2020-10-06] MEDS: FORTAZ or TAZICEF VIAL INJ 1 G in NS 100 ML IV + SPIKE MINIBAG* 100 ML IV SCH ×3 (05:33→21:30)
[2020-10-06] MEDS: LYRICA CAP 50 mg PO SCH ×3 (05:33→21:30)
[2020-10-06] MEDS: SYNTHROID 50 mcg TAB PO SCH (05:34)
[2020-10-06] MEDS: REGLAN TAB 10 MG PO SCH ×4 (05:34→21:25)
[2020-10-06] MEDS: HumuLIN R SC PRN ×4 (05:34→21:20)
[2020-10-06] MEDS: PULMICORT NEB TX 0.5 MG NEB SCH ×2 (08:54→21:21)
[2020-10-06] MEDS: DUONEB 0.5 MG/3 MG (3 mL) NEB SCH ×4 (08:54→21:31)
[2020-10-06] MEDS: ROXICODONE TAB 5 MG PO PRN (09:24)
[2020-10-06] MEDS ORDERED: TOUJEO SOLOSTAR PEN SC SCH (10:00)
[2020-10-06] MEDS: COLACE CAP 100 MG PO SCH ×2 (10:22→21:15)
[2020-10-06] MEDS: BACTROBAN CREAM TOP SCH (10:22)
[2020-10-06] MEDS: LASIX PO SCH (10:23)
[2020-10-06] MEDS: EFFEXOR TAB 75 MG (BID DOSING) PO SCH ×2 (10:23→21:15)
[2020-10-06] MEDS: LOVENOX INJ 40 MG SYR SC SCH (10:23)
[2020-10-06] MEDS: LIDODERM 5% PATCH TD SCH (10:24)
[2020-10-06] MEDS: MAXZIDE 37.5/25 MG PO SCH (10:24)
[2020-10-06] MEDS: PEPCID TAB 20 MG PO SCH (10:25)
[2020-10-06] MEDS: MILK OF MAGNESIA PO SCH ×2 (10:25→22:57)
[2020-10-06] MEDS: NexIUM PO SCH (10:25)
[2020-10-06] MEDS: MIRALAX POWDER (1 DOSE 17 G) PO SCH (10:26)
[2020-10-06] MEDS: NORVASC TAB 5 MG PO SCH (10:26)
[2020-10-06] MEDS: NYSTATIN POWDER TOP SCH ×2 (10:26→21:15)
[2020-10-06] MEDS: PATIENT'S HOME MEDICATION PO SCH (10:26)
[2020-10-06] MEDS: PATIENT'S HOME MEDICATION SC SCH ×2 (10:52→21:25)
[2020-10-06] MEDS: TYLENOL 325 MG TAB PO PRN ×2 (10:53→20:00)
[2020-10-06] MEDS: CHECK PATCH XX SCH (11:22)
[2020-10-06] MEDS: CRESTOR TAB 10 MG PO SCH (21:15)
[2020-10-06] MEDS: KLONOPIN TAB 1 MG PO PRN (21:20)
[2020-10-06] MEDS: MORPHINE SULFATE INJ 2 MG INJ IVP PRN (23:43)
[2020-10-07] MEDS: LYRICA CAP 50 mg PO SCH ×3 (05:41→21:15)
[2020-10-07] MEDS: FORTAZ or TAZICEF VIAL INJ 1 G in NS 100 ML IV + SPIKE MINIBAG* 100 ML IV SCH ×3 (05:41→21:15)
[2020-10-07] MEDS: REGLAN TAB 10 MG PO SCH ×4 (05:46→21:15)
[2020-10-07] MEDS: SYNTHROID 50 mcg TAB PO SCH (05:47)
[2020-10-07] MEDS: PULMICORT NEB TX 0.5 MG NEB SCH ×2 (08:50→21:31)
[2020-10-07] MEDS: DUONEB 0.5 MG/3 MG (3 mL) NEB SCH ×4 (08:50→21:31)
[2020-10-07] MEDS: LOVENOX INJ 40 MG SYR SC SCH (09:40)
[2020-10-07] MEDS: LIDODERM 5% PATCH TD SCH (09:40)
[2020-10-07] MEDS: LASIX PO SCH (09:41)
[2020-10-07] MEDS: EFFEXOR TAB 75 MG (BID DOSING) PO SCH ×2 (09:41→21:14)
[2020-10-07] MEDS: COLACE CAP 100 MG PO SCH ×2 (09:41→21:13)
[2020-10-07] MEDS: BACTROBAN CREAM TOP SCH ×2 (09:41→21:13)
[2020-10-07] MEDS: MAXZIDE 37.5/25 MG PO SCH (09:41)
[2020-10-07] MEDS: NORVASC TAB 5 MG PO SCH (09:41)
[2020-10-07] MEDS: NexIUM PO SCH (09:41)
[2020-10-07] MEDS: CHECK PATCH XX SCH ×2 (09:42→21:13)
[2020-10-07] MEDS: PATIENT'S HOME MEDICATION SC SCH ×2 (09:42→21:26)
[2020-10-07] MEDS: MILK OF MAGNESIA PO SCH ×2 (09:43→21:15)
[2020-10-07] MEDS: PEPCID TAB 20 MG PO SCH (09:43)
[2020-10-07] MEDS: MIRALAX POWDER (1 DOSE 17 G) PO SCH (09:43)
[2020-10-07] MEDS: NYSTATIN POWDER TOP SCH ×2 (09:43→21:14)
[2020-10-07] MEDS: TYLENOL 325 MG TAB PO PRN ×2 (09:44→13:28)
[2020-10-07] MEDS: INDERAL LA 60 MG CAP PO SCH (09:56)
[2020-10-07] MEDS: HumuLIN R SC PRN (13:21)
[2020-10-07] MEDS: SNACK - Diabetic Appropriate PO SCH (20:45)
[2020-10-07] MEDS: CRESTOR TAB 10 MG PO SCH (21:13)
[2020-10-07] MEDS: KLONOPIN TAB 1 MG PO PRN (21:35)
[2020-10-08 05:21] LABS: BASOPHILS # (AUTO) 0.1 X10^3/uL (0.0-0.1); BASOPHILS % (AUTO) 0.3 % (0.2-1.0); EOSINOPHILS # (AUTO) 0.5 x10^3/uL (0.0-0.2); EOSINOPHILS % (AUTO) 2.5 % (0.9-2.9); HEMATOCRIT 28.3 % (36.0-47.0); HEMOGLOBIN 9.4 g/dL (12.0-16.0); LYMPHOCYTES # (AUTO) 2.5 X10^3/uL (1.3-2.9); LYMPHOCYTES % (AUTO) 12.4 % (21.0-51.0); MEAN CORPUSCULAR HEMOGLOBIN 29.8 pg (27.0-34.0); MEAN CORPUSCULAR HGB CONC 33.3 g/dL (33.0-35.0); MEAN CORPUSCULAR VOLUME 89.7 fL (80.0-100.0); MEAN PLATELET VOLUME 8.5 fL (7.4-11.0); MONOCYTES # (AUTO) 1.6 x10^3/uL (0.3-0.8); MONOCYTES % (AUTO) 7.6 % (0.0-13.0); NEUTROPHILS # (AUTO) 15.7 x10^3/uL (2.2-4.8); NEUTROPHILS % (AUTO) 77.2 % (42.0-75.0); PLATELET COUNT 535 X10^3/uL (150.0-450.0); RED BLOOD COUNT 3.15 X10^6/uL (3.5-5.4); RED CELL DISTRIBUTION WIDTH 17.6 % (11.6-16.5); WHITE BLOOD COUNT 20.4 X10^3/uL (3.6-10.0)
[2020-10-08 05:38] LABS: ALANINE AMINOTRANSFERASE 45 Units/L (12-78); ALKALINE PHOSPHATASE 133 Units/L (46-116); ASPARTATE AMINO TRANSFERASE 44 Units/L (15-37); BLOOD UREA NITROGEN 24 mg/dL (7-18); CALCIUM 8.4 mg/dL (8.5-10.1); CARBON DIOXIDE 34.5 mmol/L (21-32); CHLORIDE 104 mmol/L (98-107); CREATININE 1.16 mg/dL (0.55-1.02); SODIUM 141 mmol/L (136-145); TOTAL PROTEIN 5.2 g/dL (6.4-8.2); eGFR NON BLACK RACES 49 (>60)
[2020-10-08] MEDS: FORTAZ or TAZICEF VIAL INJ 1 G in NS 100 ML IV + SPIKE MINIBAG* 100 ML IV SCH ×3 (05:54→21:00)
[2020-10-08] MEDS: LYRICA CAP 50 mg PO SCH ×3 (05:55→21:02)
[2020-10-08] MEDS: SYNTHROID 50 mcg TAB PO SCH (05:56)
[2020-10-08] MEDS: REGLAN TAB 10 MG PO SCH ×4 (05:58→21:00)
[2020-10-08] MEDS: TYLENOL 325 MG TAB PO PRN (09:05)
[2020-10-08] MEDS: BACTROBAN CREAM TOP SCH ×2 (09:06→21:12)
[2020-10-08] MEDS: DUONEB 0.5 MG/3 MG (3 mL) NEB SCH ×4 (09:19→20:34)
[2020-10-08] MEDS: PULMICORT NEB TX 0.5 MG NEB SCH ×2 (09:19→20:34)
[2020-10-08] MEDS: INDERAL LA 60 MG CAP PO SCH (10:00)
[2020-10-08] MEDS: PATIENT'S HOME MEDICATION SC SCH ×2 (10:00→21:11)
[2020-10-08] MEDS: MAXZIDE 37.5/25 MG PO SCH (10:00)
[2020-10-08] MEDS: EFFEXOR TAB 75 MG (BID DOSING) PO SCH ×2 (10:00→21:04)
[2020-10-08] MEDS: NexIUM PO SCH (10:00)
[2020-10-08] MEDS: NYSTATIN POWDER TOP SCH ×2 (10:00→21:04)
[2020-10-08] MEDS: COLACE CAP 100 MG PO SCH ×2 (10:00→21:01)
[2020-10-08] MEDS: LASIX PO SCH (10:00)
[2020-10-08] MEDS: NORVASC TAB 5 MG PO SCH (10:00)
[2020-10-08] MEDS: PEPCID TAB 20 MG PO SCH (10:00)
[2020-10-08] MEDS: LOVENOX INJ 40 MG SYR SC SCH (10:05)
--- NOTE | 2020-10-08 10:54 | RAD ---
HISTORYSOB, ELEVATED WBC are breast and lung cancerSTUDYCHEST x-ray, 1 VIEWCOMPARISONX-ray 10/02/2020FINDINGSContinued worsening of moderate right pleural effusion with associated densities in the right lower lung. Mass in the right lower lung cannot be excluded but findings may just represent atelectasis or pneumonia.Persistent curvilinear densities in the left lingula are probably atelectasis. Small left pleural effusion is unchanged. Port catheter is unchanged in position. Cardiomegaly persists. Sclerotic bone metastases persist. Left humeral neck fracture is chronic.IMPRESSIONContinued worsening of moderate right pleural effusion.Electronically signed by: Fam Ghosh (Oct 08, 2020 10:53:08)
[2020-10-08] MEDS: LIDODERM 5% PATCH TD SCH (12:01)
[2020-10-08] MEDS: MILK OF MAGNESIA PO SCH ×2 (12:03→21:06)
[2020-10-08] MEDS: MIRALAX POWDER (1 DOSE 17 G) PO SCH (12:03)
[2020-10-08] MEDS: TORADOL 30 MG VIAL IVP PRN (12:06)
[2020-10-08] MEDS: CHECK PATCH XX SCH ×2 (12:21→21:12)
[2020-10-08] MEDS ORDERED: NS 100 ML IV 100 ML ONE (16:45)
[2020-10-08 18:49] LABS: BILIRUBIN,URINE NEGATIVE (NEGATIVE); BLOOD/HEMOGLOBIN,URINE NEGATIVE (NEGATIVE); GLUCOSE, URINE NEGATIVE (NEGATIVE); KETONES,URINE NEGATIVE (NEGATIVE); LEUKOCYTE ESTERASE ,URINE NEGATIVE (NEGATIVE); NITRITES,URINE NEGATIVE (NEGATIVE); PROTEIN,URINE NEGATIVE (NEGATIVE); UROBILINOGEN,URINE NORMAL (NORMAL)
[2020-10-08 18:56] LABS: APPEARANCE,URINE CLEAR (CLEAR); COLOR,URINE STRAW (YELLOW)
[2020-10-08] MEDS: SNACK - Diabetic Appropriate PO SCH (21:00)
[2020-10-08] MEDS: CRESTOR TAB 10 MG PO SCH (21:01)
[2020-10-08] MEDS: KLONOPIN TAB 1 MG PO PRN (21:08)
[2020-10-09] MEDS: LYRICA CAP 50 mg PO SCH ×3 (05:57→21:11)
[2020-10-09] MEDS: FORTAZ or TAZICEF VIAL INJ 1 G in NS 100 ML IV + SPIKE MINIBAG* 100 ML IV SCH (05:57)
[2020-10-09] MEDS: REGLAN TAB 10 MG PO SCH ×4 (05:58→21:11)
[2020-10-09] MEDS: SYNTHROID 50 mcg TAB PO SCH (06:04)
[2020-10-09] MEDS: DUONEB 0.5 MG/3 MG (3 mL) NEB SCH ×4 (08:58→20:32)
[2020-10-09] MEDS: PULMICORT NEB TX 0.5 MG NEB SCH ×2 (08:58→20:32)
[2020-10-09] MEDS: TORADOL 30 MG VIAL IVP PRN (09:51)
[2020-10-09] MEDS: BACTROBAN CREAM TOP SCH ×2 (09:51→21:12)
[2020-10-09] MEDS: COLACE CAP 100 MG PO SCH ×2 (09:52→21:12)
[2020-10-09] MEDS: CHECK PATCH XX SCH ×2 (09:52→21:35)
[2020-10-09] MEDS: LIDODERM 5% PATCH TD SCH (09:53)
[2020-10-09] MEDS: PEPCID TAB 20 MG PO SCH (09:54)
[2020-10-09] MEDS: MAXZIDE 37.5/25 MG PO SCH (09:54)
[2020-10-09] MEDS: EFFEXOR TAB 75 MG (BID DOSING) PO SCH ×2 (09:55→21:11)
[2020-10-09] MEDS: NexIUM PO SCH (09:55)
[2020-10-09] MEDS: LASIX PO SCH (09:56)
[2020-10-09] MEDS: NORVASC TAB 5 MG PO SCH (09:56)
[2020-10-09] MEDS: INDERAL LA 60 MG CAP PO SCH (09:56)
[2020-10-09] MEDS: LOVENOX INJ 40 MG SYR SC SCH (09:57)
[2020-10-09] MEDS: MIRALAX POWDER (1 DOSE 17 G) PO SCH (09:59)
[2020-10-09] MEDS: MILK OF MAGNESIA PO SCH ×2 (09:59→21:13)
[2020-10-09] MEDS: NYSTATIN POWDER TOP SCH ×2 (10:00→21:12)
[2020-10-09] MEDS: PATIENT'S HOME MEDICATION SC SCH ×2 (10:01→21:32)
[2020-10-09] MEDS: ZOSYN VIAL 3.375 GRAMS 3.375 G in NS 100 ML IV + SPIKE MINIBAG* 100 ML IV SCH ×3 (13:18→21:11)
[2020-10-09] MEDS: SNACK - Diabetic Appropriate PO SCH (21:10)
[2020-10-09] MEDS: CRESTOR TAB 10 MG PO SCH (21:12)
[2020-10-09] MEDS: KLONOPIN TAB 1 MG PO PRN (21:13)
[2020-10-10 06:09] LABS: BASOPHILS # (AUTO) 0.1 X10^3/uL (0.0-0.1); BASOPHILS % (AUTO) 0.4 % (0.2-1.0); EOSINOPHILS # (AUTO) 0.8 x10^3/uL (0.0-0.2); EOSINOPHILS % (AUTO) 5.8 % (0.9-2.9); HEMATOCRIT 29.1 % (36.0-47.0); HEMOGLOBIN 9.5 g/dL (12.0-16.0); LYMPHOCYTES # (AUTO) 2.1 X10^3/uL (1.3-2.9); LYMPHOCYTES % (AUTO) 14.4 % (21.0-51.0); MEAN CORPUSCULAR HEMOGLOBIN 29.6 pg (27.0-34.0); MEAN CORPUSCULAR HGB CONC 32.5 g/dL (33.0-35.0); MEAN CORPUSCULAR VOLUME 90.9 fL (80.0-100.0); MEAN PLATELET VOLUME 8.4 fL (7.4-11.0); MONOCYTES # (AUTO) 1.3 x10^3/uL (0.3-0.8); MONOCYTES % (AUTO) 8.6 % (0.0-13.0); NEUTROPHILS # (AUTO) 10.3 x10^3/uL (2.2-4.8); NEUTROPHILS % (AUTO) 70.8 % (42.0-75.0); PLATELET COUNT 428 X10^3/uL (150.0-450.0); RED CELL DISTRIBUTION WIDTH 18.4 % (11.6-16.5); WHITE BLOOD COUNT 14.6 X10^3/uL (3.6-10.0)
--- NOTE | 2020-10-10 06:15 | RAD ---
HISTORYSOBSTUDYCHEST, 1 JUDBGQKECLFPYN95/28/2021.TECHNIQUEAP view of the chestFINDINGSRight chest wall port with tip in good position. The cardiac silhouette is stably enlarged. Mediastinal contours appear stable. Stable right worse than left base pleural parenchymal opacities. No discernible pneumothorax.IMPRESSIONNo significant change in bilateral pleural parenchymal opacities which may represent a combination of pleural effusion with atelectasis or pneumonia.Electronically signed by: Dany Harris (Oct 10, 2020 06:13:31)
[2020-10-10 06:26] LABS: CALCIUM 8.2 mg/dL (8.5-10.1); CARBON DIOXIDE 30.1 mmol/L (21-32); COR CA(FOR HYPOALB) 9.8 mg/dL (8.5-10.1); CREATININE 1.19 mg/dL (0.55-1.02); TOTAL PROTEIN 5.6 g/dL (6.4-8.2)
[2020-10-10] MEDS: LYRICA CAP 50 mg PO SCH ×3 (06:48→22:00)
[2020-10-10] MEDS: ZOSYN VIAL 3.375 GRAMS 3.375 G in NS 100 ML IV + SPIKE MINIBAG* 100 ML IV SCH ×3 (06:48→22:00)
[2020-10-10] MEDS: REGLAN TAB 10 MG PO SCH ×4 (06:48→20:31)
[2020-10-10] MEDS: SYNTHROID 50 mcg TAB PO SCH (06:49)
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
[2020-10-10] MEDS: LIDODERM 5% PATCH TD SCH (09:02)
[2020-10-10] MEDS: NYSTATIN POWDER TOP SCH ×2 (09:03→20:32)
[2020-10-10] MEDS: MILK OF MAGNESIA PO SCH ×4 (09:03→20:35)
[2020-10-10] MEDS: MIRALAX POWDER (1 DOSE 17 G) PO SCH ×2 (09:03→09:15)
[2020-10-10] MEDS: MAXZIDE 37.5/25 MG PO SCH (09:03)
[2020-10-10] MEDS: NORVASC TAB 5 MG PO SCH (09:04)
[2020-10-10] MEDS: EFFEXOR TAB 75 MG (BID DOSING) PO SCH ×2 (09:04→20:31)
[2020-10-10] MEDS: COLACE CAP 100 MG PO SCH ×2 (09:04→20:36)
[2020-10-10] MEDS: LOVENOX INJ 40 MG SYR SC SCH (09:04)
[2020-10-10] MEDS: NexIUM PO SCH (09:04)
[2020-10-10] MEDS: PEPCID TAB 20 MG PO SCH (09:04)
[2020-10-10] MEDS: LASIX PO SCH (09:04)
[2020-10-10] MEDS: BACTROBAN CREAM TOP SCH ×2 (09:06→20:29)
[2020-10-10] MEDS: CHECK PATCH XX SCH ×2 (09:07→21:02)
[2020-10-10] MEDS: PATIENT'S HOME MEDICATION SC SCH ×2 (09:12→22:05)
[2020-10-10] MEDS: DUONEB 0.5 MG/3 MG (3 mL) NEB SCH ×4 (09:40→20:51)
[2020-10-10] MEDS: PULMICORT NEB TX 0.5 MG NEB SCH ×2 (09:40→20:51)
[2020-10-10] MEDS: INDERAL LA 60 MG CAP PO SCH (11:05)
--- NOTE | 2020-10-10 18:34 | SP.EVAL ---
SPEECH EVALUATION - History Prescription: Bedside swallow evaluation Diagnosis: L1-L4 fx Precautions: Aspiration PMH: See medical chart for full and complete PMHX Prior Level of Function: Assistance Required - Objective Prior level of function: Assistance Required Driving Status: Patient Does not Drive - Cognition Mental Status: Alert, Name Ability to Follow Directions: 1 Step - Communication Status Communication Status: Verbal Automatized Sequences: Within Functional Limit Sentence Completion: Within Functional Limit Produces Sentences: Within Functional Limit - Oral/Motor Examination Labial: At Rest, Open, Close, Retract, Pucker Lingual: Lateralize, Elevate, Protrude, Retract Teeth: Natural Swallowing: Cough Past Eating, Cough Past Drinking Swallowing: Pt presents with independence for presentation of PO with good regulation of bite sizes, rate of intake, and alternation of bites and sips. Pt able to progress through the assessment with adequate bolus prepartation and propulsion posteriorly to trigger secondary swallow. Pt did present with post swallow cough x 3 with immediate return to baseline voice quality. Diet Tolerated: Fair - Assessment Goals discussed with family?: No Patient/Family Goals: Meet hydration/nutrition with least restrictive diet - Rehabilitation Rehabilitation Potential: Good Justification for potential: Supportive environment Weakness and Barriers: None - Suggested Treatment Plan Suggested Treatment: Swallow/Oral Function Th. - Discharge Plan Expected Discharge Disposition: Home (Cont with soft diet and universal safe swallow strategies. Pt may benefit from further diagnostics such as MBS or FEES)
[2020-10-10] MEDS: SNACK - Diabetic Appropriate PO SCH (20:28)
[2020-10-10] MEDS: CRESTOR TAB 10 MG PO SCH (20:30)
[2020-10-10] MEDS: KLONOPIN TAB 1 MG PO PRN (20:38)
[2020-10-11] MEDS: REGLAN TAB 10 MG PO SCH ×4 (06:10→20:49)
[2020-10-11] MEDS: LYRICA CAP 50 mg PO SCH ×3 (06:10→21:00)
[2020-10-11] MEDS: ZOSYN VIAL 3.375 GRAMS 3.375 G in NS 100 ML IV + SPIKE MINIBAG* 100 ML IV SCH ×3 (06:10→21:00)
[2020-10-11] MEDS: SYNTHROID 50 mcg TAB PO SCH (06:16)
[2020-10-11] MEDS: PULMICORT NEB TX 0.5 MG NEB SCH ×2 (08:24→20:41)
[2020-10-11] MEDS: DUONEB 0.5 MG/3 MG (3 mL) NEB SCH ×4 (08:24→20:41)
[2020-10-11] MEDS: EFFEXOR TAB 75 MG (BID DOSING) PO SCH ×2 (09:05→20:49)
[2020-10-11] MEDS: NexIUM PO SCH (09:05)
[2020-10-11] MEDS: LOVENOX INJ 40 MG SYR SC SCH (09:06)
[2020-10-11] MEDS: LASIX PO SCH (09:06)
[2020-10-11] MEDS: NORVASC TAB 5 MG PO SCH (09:07)
[2020-10-11] MEDS: MAXZIDE 37.5/25 MG PO SCH (09:07)
[2020-10-11] MEDS: COLACE CAP 100 MG PO SCH ×2 (09:07→20:49)
[2020-10-11] MEDS: PEPCID TAB 20 MG PO SCH (09:07)
[2020-10-11] MEDS: LIDODERM 5% PATCH TD SCH (09:08)
[2020-10-11] MEDS: BACTROBAN CREAM TOP SCH ×2 (09:11→20:52)
[2020-10-11] MEDS: CHECK PATCH XX SCH ×2 (09:12→20:53)
[2020-10-11] MEDS: NYSTATIN POWDER TOP SCH ×2 (09:14→20:51)
[2020-10-11] MEDS: MILK OF MAGNESIA PO SCH ×2 (09:14→20:51)
[2020-10-11] MEDS: PATIENT'S HOME MEDICATION SC SCH ×2 (09:14→21:45)
[2020-10-11] MEDS: MIRALAX POWDER (1 DOSE 17 G) PO SCH (09:14)
[2020-10-11] MEDS: INDERAL LA 60 MG CAP PO SCH (11:18)
[2020-10-11] MEDS: TORADOL 30 MG VIAL IVP PRN (11:20)
[2020-10-11] MEDS: ZOFRAN INJ 4 MG VIAL IVP PRN (11:21)
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
[2020-10-11] MEDS: SNACK - Diabetic Appropriate PO SCH (20:15)
[2020-10-11] MEDS: CRESTOR TAB 10 MG PO SCH (20:49)
[2020-10-11] MEDS: KLONOPIN TAB 1 MG PO PRN (20:56)
[2020-10-12] MEDS: ZOSYN VIAL 3.375 GRAMS 3.375 G in NS 100 ML IV + SPIKE MINIBAG* 100 ML IV SCH ×3 (05:19→21:03)
[2020-10-12] MEDS: LYRICA CAP 50 mg PO SCH ×3 (05:20→21:05)
[2020-10-12] MEDS: SYNTHROID 50 mcg TAB PO SCH (05:43)
[2020-10-12] MEDS: REGLAN TAB 10 MG PO SCH ×4 (05:44→20:43)
[2020-10-12] MEDS: TORADOL 30 MG VIAL IVP PRN (08:00)
[2020-10-12] MEDS: ZOFRAN INJ 4 MG VIAL IVP PRN (08:00)
[2020-10-12] MEDS: DUONEB 0.5 MG/3 MG (3 mL) NEB SCH ×4 (09:10→21:36)
[2020-10-12] MEDS: PULMICORT NEB TX 0.5 MG NEB SCH ×2 (09:10→21:36)
[2020-10-12] MEDS: NORVASC TAB 5 MG PO SCH (09:17)
[2020-10-12] MEDS: EFFEXOR TAB 75 MG (BID DOSING) PO SCH ×2 (09:25→20:49)
[2020-10-12] MEDS: MAXZIDE 37.5/25 MG PO SCH (09:26)
[2020-10-12] MEDS: PEPCID TAB 20 MG PO SCH (09:26)
[2020-10-12] MEDS: NexIUM PO SCH (09:27)
[2020-10-12] MEDS: LIDODERM 5% PATCH TD SCH (09:27)
[2020-10-12] MEDS: COLACE CAP 100 MG PO SCH ×2 (09:27→20:43)
[2020-10-12] MEDS: LASIX PO SCH (09:27)
[2020-10-12] MEDS: LOVENOX INJ 40 MG SYR SC SCH (09:28)
[2020-10-12] MEDS: CHECK PATCH XX SCH ×2 (09:59→20:47)
[2020-10-12] MEDS: BACTROBAN CREAM TOP SCH ×2 (09:59→20:48)
[2020-10-12] MEDS: PATIENT'S HOME MEDICATION SC SCH ×2 (10:00→20:45)
[2020-10-12] MEDS: MILK OF MAGNESIA PO SCH ×2 (10:00→20:47)
[2020-10-12] MEDS: NYSTATIN POWDER TOP SCH ×2 (10:00→20:46)
[2020-10-12] MEDS: MIRALAX POWDER (1 DOSE 17 G) PO SCH (10:00)
[2020-10-12] MEDS: INDERAL LA 60 MG CAP PO SCH (10:00)
[2020-10-12] MEDS: HumuLIN R SC PRN (17:07)
[2020-10-12] MEDS: CRESTOR TAB 10 MG PO SCH (20:43)
[2020-10-12] MEDS: SNACK - Diabetic Appropriate PO SCH (20:45)
[2020-10-12] MEDS: KLONOPIN TAB 1 MG PO PRN (20:49)
[2020-10-13] MEDS: ZOSYN VIAL 3.375 GRAMS 3.375 G in NS 100 ML IV + SPIKE MINIBAG* 100 ML IV SCH ×2 (05:27→13:16)
[2020-10-13] MEDS: LYRICA CAP 50 mg PO SCH (05:28)
[2020-10-13] MEDS: HumuLIN R SC PRN ×2 (05:29→11:26)
[2020-10-13 05:31] LABS: BASOPHILS # (AUTO) 0.1 X10^3/uL (0.0-0.1); BASOPHILS % (AUTO) 0.8 % (0.2-1.0); EOSINOPHILS # (AUTO) 0.6 x10^3/uL (0.0-0.2); EOSINOPHILS % (AUTO) 4.8 % (0.9-2.9); HEMATOCRIT 29.4 % (36.0-47.0); HEMOGLOBIN 9.5 g/dL (12.0-16.0); LYMPHOCYTES # (AUTO) 1.7 X10^3/uL (1.3-2.9); LYMPHOCYTES % (AUTO) 13.9 % (21.0-51.0); MEAN CORPUSCULAR HEMOGLOBIN 29.4 pg (27.0-34.0); MEAN CORPUSCULAR HGB CONC 32.4 g/dL (33.0-35.0); MEAN CORPUSCULAR VOLUME 90.7 fL (80.0-100.0); MONOCYTES # (AUTO) 1.6 x10^3/uL (0.3-0.8); MONOCYTES % (AUTO) 13.4 % (0.0-13.0); NEUTROPHILS # (AUTO) 8.2 x10^3/uL (2.2-4.8); NEUTROPHILS % (AUTO) 67.1 % (42.0-75.0); PLATELET COUNT 360 X10^3/uL (150.0-450.0); RED BLOOD COUNT 3.24 X10^6/uL (3.5-5.4); RED CELL DISTRIBUTION WIDTH 18.4 % (11.6-16.5); WHITE BLOOD COUNT 12.2 X10^3/uL (3.6-10.0)
[2020-10-13] MEDS: SYNTHROID 50 mcg TAB PO SCH (05:31)
[2020-10-13] MEDS: REGLAN TAB 10 MG PO SCH ×2 (05:32→11:26)
[2020-10-13 05:37] LABS: ALBUMIN 2.2 g/dL (3.4-5.0); CALCIUM 8.4 mg/dL (8.5-10.1); CARBON DIOXIDE 33.9 mmol/L (21-32); COR CA(FOR HYPOALB) 9.8 mg/dL (8.5-10.1); CREATININE 1.29 mg/dL (0.55-1.02)
[2020-10-13 08:18] VITALS: BP 121/60
[2020-10-13] MEDS: BACTROBAN CREAM TOP SCH (08:46)
[2020-10-13] MEDS: LASIX PO SCH (08:47)
[2020-10-13] MEDS: INDERAL LA 60 MG CAP PO SCH (08:47)
[2020-10-13] MEDS: EFFEXOR TAB 75 MG (BID DOSING) PO SCH (08:47)
[2020-10-13] MEDS: NexIUM PO SCH (08:48)
[2020-10-13] MEDS: COLACE CAP 100 MG PO SCH (08:48)
[2020-10-13] MEDS: PEPCID TAB 20 MG PO SCH (08:49)
[2020-10-13] MEDS: MAXZIDE 37.5/25 MG PO SCH (08:49)
[2020-10-13] MEDS: NYSTATIN POWDER TOP SCH (08:50)
[2020-10-13] MEDS: NORVASC TAB 5 MG PO SCH (08:50)
[2020-10-13] MEDS: LOVENOX INJ 40 MG SYR SC SCH (08:51)
[2020-10-13] MEDS: MIRALAX POWDER (1 DOSE 17 G) PO SCH (08:51)
[2020-10-13] MEDS: MILK OF MAGNESIA PO SCH (08:51)
[2020-10-13] MEDS: CHECK PATCH XX SCH (08:56)
[2020-10-13] MEDS: LIDODERM 5% PATCH TD SCH (08:56)
[2020-10-13] MEDS: PATIENT'S HOME MEDICATION SC SCH (08:59)
[2020-10-13] MEDS: DUONEB 0.5 MG/3 MG (3 mL) NEB SCH (09:25)
[2020-10-13] MEDS: PULMICORT NEB TX 0.5 MG NEB SCH (09:25)
[2020-10-13] MEDS: TYLENOL 325 MG TAB PO PRN (12:28)
== END 2020-10-13 13:50 | disposition home health service (06) | DRG 552 ==
LOC: MED/SURG 16:51
PROVIDERS: ADMIT Internal Medicine; ATTEND Internal Medicine
DX: E11.65 Type 2 diabetes mellitus with hyperglycemia; J90 Pleural effusion, not elsewhere classified; Z47.89 Encounter for other orthopedic aftercare; E03.8 Other specified hypothyroidism; J44.9 Chronic obstructive pulmonary disease, unspecified; R05 Cough; N17.8 Other acute kidney failure; Z92.21 Personal history of antineoplastic chemotherapy; R06.02 Shortness of breath; Z79.4 Long term (current) use of insulin; F32.89 Other specified depressive episodes; R53.1 Weakness; N39.0 Urinary tract infection, site not specified; I10 Essential (primary) hypertension; C50.412 Malignant neoplasm of upper-outer quadrant of left female breast; V89.2XXA Person injured in unspecified motor-vehicle accident, traffic, initial encounter; S32.019A Unspecified fracture of first lumbar vertebra, initial encounter for closed fracture; E78.2 Mixed hyperlipidemia; S22.21XA Fracture of manubrium, initial encounter for closed fracture